=== PATIENT | male | born 1940 | race Caucasian/White ===

== ENCOUNTER 2018-07-04 13:46 | Outpatient (CLI) | payer MEDICARE, BC, SELFPAY ==
--- NOTE | 2018-07-04 13:56 | DI.US_ITS ---
SYMPTOMS/DIAGNOSIS: LEFT CAROTID BRUIT, R09.89, I65.23 CAROTID ULTRASOUND: There is a moderate amount of calcific plaque seen in the right common carotid bulb, proximal and mid internal carotid artery. There are mild velocity elevations, but no stenosis greater than 50%. There is a mild amount of calcific plaque in the left common carotid bulb and proximal internal and external carotid artery. No significant velocity elevations are seen. The vertebral arteries show antegrade flow. There is an ovoid mass posterolateral to the right proximal common carotid artery. It likely represents an abnormally enlarged lymph node and measures 2.8 x 1.4 x 1.7 cm. The right lobe of the thyroid is only partially imaged and there is a question of thyroid nodularity. IMPRESSION: 1. Calcific plaque, right greater than left. No stenosis greater than 50%. 2. A 2.8 cm hypoechoic mass adjacent to the proximal right common carotid artery may represent an abnormally enlarged cervical lymph node. CT of the neck is recommended for further evaluation.
== END 2018-07-04 14:06 ==
PROVIDERS: PCP Family Medicine; Visit Provider Family Medicine
DX: R09.89 Other specified symptoms and signs involving the circulatory and respiratory systems (principal); I65.23 Occlusion and stenosis of bilateral carotid arteries; R22.1 Localized swelling, mass and lump, neck
CPT/HCPCS: 93880

== ENCOUNTER 2018-07-10 02:07 | Outpatient (CLI) | payer MEDICARE, BC, SELFPAY ==
[2018-07-10 11:27] LABS: HCT 45.1 % (40.0-50.0); HGB 14.7 g/dL (13.5-17.5); Mean Corp. HGB Concentration 32.6 g/dL (32.0-36.0); Mean Corpuscular Hemoglobin 28.4 pg (27.0-33.0); Mean Corpuscular Volume 87.2 fL (80-95); Mean Platelet Volume 12.3 fL (8.0-11.0); Platelet Count 209 x1000/uL (130-400); RBC 5.17 m/cumm (4.50-6.00); White Blood Cell Count 6.25 k/cumm (4.4-10.8)
== END 2018-07-10 02:27 ==
PROVIDERS: PCP Family Medicine; Visit Provider Family Medicine
DX: R42 Dizziness and giddiness (principal); I99.9 Unspecified disorder of circulatory system
CPT/HCPCS: 80053; 80061; 83721; 85027; 83036; 84443

== ENCOUNTER 2018-07-13 02:23 | Outpatient (CLI) | payer MEDICARE, BC, SELFPAY ==
--- NOTE | 2018-07-13 12:29 | DI.CT_ITS ---
SYMPTOMS/DIAGNOSIS: F/U ABNORMAL ULTRASOUND, LARGE RIGHT NECK MASS, ENLARGED LYMPH NODE, R59.[address]: CT examination of the cervical region was performed with intravenous infusion of 100 cc of Omnipaque 350. The patient reportedly has an inferior right neck mass identified on recent carotid ultrasound. CT shows a 32 mm in diameter supraclavicular mass, which has appearance consistent with an enlarged lymph node. This corresponds to the abnormality identified on ultrasound. A couple of other small supraclavicular nodes are noted on the right, the largest measuring about 15 mm in diameter. There are nonspecific small superior mediastinal lymph nodes noted, the largest about 15 mm in diameter. Images obtained through the lung apices show a spiculated 32 mm in diameter right upper lobe apical lung mass, highly suspicious for carcinoma. No additional intrapulmonary findings on the visualized portions of the lungs. No additional neck mass seen. Tracheolaryngeal structures appear intact. Visualized portions of the brain are unremarkable. Orbital and temporal bone structures appear intact. No focal vascular abnormality is seen. CONCLUSION: Findings highly suggestive of right upper lobe neoplastic lesion with associated supraclavicular adenopathy.
[2018-07-13 13:53] LABS: CREATININE 0.91 mg/dL (0.70-1.30)
[2018-07-13 13:55] LABS: HGB 14.7 g/dL (13.5-17.5); Mean Corp. HGB Concentration 32.7 g/dL (32.0-36.0); Mean Corpuscular Hemoglobin 28.3 pg (27.0-33.0); Mean Corpuscular Volume 86.7 fL (80-95); Mean Platelet Volume 12.7 fL (8.0-11.0); Platelet Count 214 x1000/uL (130-400); RBC 5.19 m/cumm (4.50-6.00); RBC Distribution Width 13.8 % (11.8-14.1); White Blood Cell Count 7.44 k/cumm (4.4-10.8)
[2018-07-13] MEDS: Omnipaque 350 MG/ML 100 ML BTL IJ (15:06)
== END 2018-07-13 02:43 ==
PROVIDERS: PCP Family Medicine; Visit Provider Family Medicine
DX: R22.1 Localized swelling, mass and lump, neck (principal); R59.0 Localized enlarged lymph nodes; R42 Dizziness and giddiness; R91.8 Other nonspecific abnormal finding of lung field; D38.1 Neoplasm of uncertain behavior of trachea, bronchus and lung
CPT/HCPCS: 70491; 85027; 82565; J3490

== ENCOUNTER 2018-07-16 14:52 | Outpatient (CLI) | payer MEDICARE, BC, SELFPAY ==
[2018-07-16] MEDS: Omnipaque 350 MG/ML 50 ML BTL PO (10:05)
[2018-07-16] MEDS: Breeza Beverage 473 ML BTL PO ×2 (10:07→10:08)
[2018-07-16 11:20] LABS: ALT 31 U/L (12-78); AST 22 U/L (15-37); Albumin 3.6 g/dL (3.4-5.0); Alkaline Phosphatase 97 U/L (46-116); Anion Gap 9.2 mmol/L (3-11); BUN 25 mg/dL (7-18); Bilirubin, Total 0.6 mg/dL (0.2-1.0); CO2 29.8 mmol/L (21.0-32.0); CREATININE 1.17 mg/dL (0.70-1.30); Calcium 9.2 mg/dL (8.5-10.1); Chloride 99 mmol/L (98-107); Cholesterol 205 mg/dL (50-200); Glucose 383 mg/dL (70-100); HDL Cholesterol 45 mg/dL (40-60); LDL CHOLESTEROL 137 mg/dL (<100); Potassium 4.5 mmol/L (3.5-5.1); Sodium 138 mmol/L (136-145); Total Protein 6.8 g/dL (6.4-8.2); Triglyceride 222 mg/dL (30-150)
[2018-07-16 11:31] LABS: LDH 197 U/L (85-227)
[2018-07-16] MEDS: Omnipaque 350 MG/ML 100 ML BTL IJ (11:49)
--- NOTE | 2018-07-16 12:00 | DI.CT_ITS ---
SYMPTOMS/DIAGNOSIS: NEW LUNG MASS SEEN ON CT, R91.8 CT SCAN OF THE CHEST, ABDOMEN AND PELVIS: Comparison CT of the neck is 07/13/18. CT SCAN OF THE ABDOMEN AND PELVIS: There are no priors for comparison. The liver is normal in size. No evidence of hepatic mass is seen. The portal, superior mesenteric and splenic veins are patent. There are stones seen within the gallbladder. No biliary ductal dilatation is present. The pancreas, spleen and adrenal glands are unremarkable. The right kidney shows normal enhancement. No evidence of a solid renal mass or obstruction. There is a heterogeneously enhancing mass in the left kidney measuring 6.4 cm AP x 5.5 cm transverse x 6.1 cm craniocaudally. The mass has an area of decreased attenuation centrally suspicious for necrosis. Primary diagnostic consideration is for a neoplasm such as a renal cell carcinoma. The mass infiltrates into the renal hilum. The visualized portions of renal artery and vein appear patent. No obstructive uropathy is identified. The urinary bladder is intact. The reproductive organs are grossly unremarkable. There is atherosclerosis of the abdominal aorta but no aneurysmal dilatation is present. No significant abdominal or pelvic adenopathy, ascites or pneumoperitoneum is present. The bowel shows no evidence of obstruction or inflammation. There is a normal appendix present. Degenerative changes are seen in the spine. No aggressive osseous lesions are present. IMPRESSION: 1. 6.4 cm heterogeneous left renal mass suspicious for primary renal neoplasm. Renal cell carcinoma should be considered. 2. No evidence of abdominal or pelvic metastatic disease. 3. Incidental findings of cholelithiasis. CT SCAN OF THE CHEST: There is atherosclerosis of the thoracic aorta but no aneurysmal dilatation is seen. The heart size is within normal limits. No significant pericardial effusion is present. Coronary artery calcifications are present. There are again seen enlarged lymph nodes in the supraclavicular region. These are unchanged compared to the CT scan of the neck from 07/13/18. There is an enlarged lymph node anterior to the trachea measuring .8 cm in short axis diameter. No axillary adenopathy is seen. There is a 1.4 cm right supraclavicular lymph node present. No pleural effusion or pneumothorax is identified. There are a few noncalcified pulmonary nodules present. The largest is a spiculated mass seen in the right upper lobe measuring 3.2 cm transverse x 2.9 cm AP x 3.6 cm craniocaudally. There is a 1 cm noncalcified pulmonary nodule in the right middle lobe. Smaller pulmonary nodules are also seen in the left lung. The tracheobronchial tree is unremarkable. Central lobular emphysematous changes are seen in the lungs. No focal consolidating infiltrates are seen. Degenerative changes are seen in the spine. No aggressive osseous lesions are identified. IMPRESSION: 1. Multiple pulmonary masses. The largest is seen in the right upper lobe measuring 3.6 cm. The findings are suspicious for metastatic disease vs primary neoplasm. 2. Supraclavicular adenopathy.
[2018-07-16 12:22] LABS: ESR 8 MM/HR (1-20)
[2018-07-17 19:00] LABS: Bilirubin Negative (Negative); Blood Negative (Negative); Clarity Clear; Glucose 500 mg/dL (Negative); Ketones Negative (Negative); Leukocyte Esterase Negative (Negative); Nitrite Negative (Negative); Urobilinogen 0.2 EU/dL (Up TO 0.2)
[2018-07-17 19:17] LABS: Bacteria Moderate HPF (Negative); Casts Negative LPF (Negative); Crystals Negative HPF (Negative); Epithelial Cells Rare HPF (Negative); Mucus Trace (Negative); Other Cells Negative (Negative); RBC Negative (0-2); WBC 0-2 HPF (0-5)
[2018-07-17 19:18] LABS: C & S Indicated? Yes
== END 2018-07-16 15:12 ==
PROVIDERS: PCP Family Medicine; Visit Provider Family Medicine
DX: R91.8 Other nonspecific abnormal finding of lung field (principal); N28.89 Other specified disorders of kidney and ureter; K80.20 Calculus of gallbladder without cholecystitis without obstruction; R59.0 Localized enlarged lymph nodes
CPT/HCPCS: 36415; 74177; 80053; 80061; 83721; 85652; 71260; 83615; J3490; Q9967

== ENCOUNTER 2018-07-17 20:19 | Outpatient (REF) | payer MEDICARE, BC, SELFPAY ==
[2018-07-17 18:57] LABS: Hemoglobin A1C 9.9 % (4.5-6.2)
== END 2018-07-17 20:39 ==
LOC: LBN 20:19
PROVIDERS: PCP Family Medicine; Visit Provider Family Medicine
DX: R73.09 Other abnormal glucose (principal)
CPT/HCPCS: 81003; 81015; 83036; 87086

== ENCOUNTER 2018-07-18 00:08 | Outpatient (CLI) | payer MEDICARE, BC, SELFPAY ==
--- NOTE | 2018-07-18 08:30 | ETT_ITS ---
*[facility]* *[facility]* [address] [place] [address] Stress Electrocardiography Selwyn protocol Date of study: 07/18/2018 *PATIENT PRESENTATION* Height: 180.3cm (71in) Blood Pressure: Weight: 86.4kg (190lb) BSA: 2.09m^2 Referring physician: Cari Sharp Ordering physician: Cari Sharp Impressions: Negative stress test after maximal exercise. Summary: 1. Stress ECG conclusions: The stress ECG is negative. Isolated ventricular ectopy. Arevalo treadmill score: 6. This score predicts a low risk of cardiac events. 2. Stress: The target heart rate was achieved. The heart rate response to stress is normal. There is resting hypertension with an appropriate response to stress. The patient experienced no chest pain during stress. Exercise capacity is mildly diminished for age. 3. Treadmill exercise testing was performed using the Selwyn protocol. The patient exercised for 5 min 47 sec, to protocol stage 2, to a maximal work rate of 7.1mets. Exercise was terminated due to fatigue. Indication: R07.89, Appropriate Use Criteria: M (May be appropriate). History: Patient's presenting symptoms: asymptomatic. REASON FOR VISIT: PRESURGICAL SCREENING. PATIENT WITH RECENT DIAGNOSIS OF KIDNEY AND LUNG CANCER. PAST MEDICAL HISTORY: BASAL CELL CARCINOMA, DIVERTICULOSIS OF COLON, IMPAIRED FASTING GLUCOSE, UNILATERAL INGUINAL HERNIA, VARICOSE VEINS OF LOWER EXTREMITY, AORTIC STENOSIS, VASCULAR DISEASE, HYPERTENSION. FAMILY HISTORY: NONE. SMOKING STATUS: 40 PACK YEAR HISTORY. QUIT IN 1993. EXERCISE ROUTINE: NONE. Risk factors: Hypertension. Diabetes mellitus. Dyslipidemia. Cholesterol: 205mg/dl. HDL: 45mg/dl. LDL: 137mg/dl. Triglycerides: 222mg/dl. ALLERGIES: PEANUT, CEPHALEXIN, PENICILLINS. MEDICATIONS: LISINOPRIL 10MG - HYDROCHLOROTHIAZIDE 12.5MG, DAILY. Protocol: Selwyn protocol. Baseline ECG: SINUS BRADYCARDIA, HEART RATE 56 BPM. Normal ECG. Stress protocol: + +---+ + !Stage !HR !BP (mmHg) ! + +---+ + !Baseline supine !56 !160/62 (95) ! + +---+ + !Baseline standing !60 !170/72 (105)! + +---+ + !Stage I; 1.7mph, 10degrees; 3 min !98 !220/74 (123)! + +---+ + !Stage II; 2.5mph, 12degrees; 3 min!121!232/80 (131)! + +---+ + !Recovery; 1 min !89 !224/78 (127)! + +---+ + !Recovery; 3 min !72 !230/72 (125)! + +---+ + !Recovery; 6 min !74 !220/70 (120)! + +---+ + !Recovery; 9 min !71 !164/68 (100)! + +---+ + * Stress results: Maximal heart rate during stress was 122bpm (87% of maximal predicted heart rate). The maximal predicted heart rate was 141bpm. The target heart rate was achieved. The heart rate response to stress is normal. There is resting hypertension with an appropriate response to stress. The rate-pressure product for the peak heart rate and blood pressure was 74355eg Hg/min. The patient experienced no chest pain during stress. Exercise capacity is mildly diminished for age. Stress ECG: TREADMILL EXERCISE STRESS TEST ENDED IN 5MIN 47SEC DUE TO MUSCULAR FATIGUE/PAIN. NORMAL HEART RATE RESPONSE TO EXERCISE. HYPERTENSIVE RESPONSE TO EXERCISE. OF NOTE, PATIENT HELD BLOOD PRESSURE MEDICATION THIS MORNING. MAX HEART RATE 122 BPM, 86% OF TARGET. APPROXIMATE METS ACHIEVED 7.05. NO ANGINA REPORTED. OCCASIONAL PVC NOTED. MILD UPWARD SLOPING ST SEGMENT DEPRESSION NOTED IN LEADS V4, V5, AND V6 DURING IMMEDIATE RECOVERY, RESOLVING WITHIN ONE MINUTE. MILDLY DIMINISHED FUNCTIONAL CAPCITY FOR EXERCISE. The stress ECG is negative. Isolated ventricular ectopy. Arevalo treadmill score: 6. This score predicts a low risk of cardiac events. Study data: Andrzej Reno MD supervised and was readily available during the procedure. This study was interpreted by [facility]. Study status: Routine. Consent: The risks, benefits, and alternatives to the procedure were explained to the patient and informed consent was obtained. Procedure: Initial setup. A baseline ECG was recorded. Surface ECG leads and manual cuff blood pressure measurements were monitored. Heart sounds: Murmur. Lung sounds: Normal. Treadmill exercise testing was performed using the Selwyn protocol. The patient exercised for 5 min 47 sec, to protocol stage 2, to a maximal work rate of 7.1mets. Exercise was terminated due to fatigue. Study completion: The patient tolerated the procedure well and was discharged from the lab. Discharge: The patient left the laboratory in stable condition. Birthdate: Patient birthdate: 1940. Sex: Gender: male. Study date: Study date: 07/18/2018. Study time: 00:01 AM. Signature Documentation: The Stress ECG portion of this study was interpreted by Andrzej Reno MD. Electronically signed by Andrzej Reno 07/18/2018 11:02
--- NOTE | 2018-07-18 10:30 | MERGE_ITS ---
*[facility]* *[facility]* [address] [place] [address] Date of study: 07/18/2018 Transthoracic Echocardiography M-mode, complete 2D, complete spectral Doppler, and color Doppler *STUDY CONCLUSIONS* Summary: 1. Left ventricle: The cavity size was normal. Wall thickness was normal. Systolic function was normal. The estimated ejection fraction was 60-65%. Wall motion was normal; there were no regional wall motion abnormalities. Findings consistent with diastolic dysfunction. 2. Aortic valve: Valve mobility was restricted. There was mild stenosis. There was trivial regurgitation. Peak velocity (S): 2.4m/sec. Mean gradient (S): 14.2mm Hg. Valve area (VTI): 1.7cm^2. 3. Left atrium: The atrium was moderately dilated. 4. Right ventricle: The cavity size was normal. Wall thickness was normal. Systolic function was normal. 5. Pulmonary arteries: Pulmonary systolic pressure was increased, in the range of 35mm Hg to 40mm Hg. *PATIENT PRESENTATION* Height: 180.3cm ((71in) ) S/D Pressure: 148 / 56 Weight: 86.2kg ((189.6lb) ) BSA: 2.09m^2 Test start time: 10:35 AM. Test stop time: 11:35 AM. 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 This study was interpreted by [facility]. Pertinent images and digital data are archived for permanent storage and are available for subsequent review. No prior study was available for comparison. Study status: Routine. Transthoracic echocardiography. M-mode, complete 2D, complete spectral Doppler, and color Doppler. A Transthoracic Echocardiogram was performed. Scanning was performed from the parasternal, apical, subcostal, and suprasternal notch acoustic windows. Images were obtained using an [id number] cardiac ultrasound machine. Image quality was adequate. Study completion: The patient tolerated the procedure well. There were no complications. History: PMH: Aortic murmur. vascular disease i9.9, i35.0 non rheumatic aortic stenosis. *CARDIAC ANATOMY* Left ventricle: The cavity size was normal. Wall thickness was normal. Systolic function was normal. The estimated ejection fraction was 60-65%. Wall motion was normal; there were no regional wall motion abnormalities. Findings consistent with diastolic dysfunction. Aortic valve: Trileaflet; mildly thickened, mildly calcified leaflets. Valve mobility was restricted. Doppler: There was mild stenosis. There was trivial regurgitation. VTI ratio of LVOT to aortic valve: 0.46. Valve area (VTI): 1.7cm^2. Indexed valve area (VTI): 0.8cm^2/m^2. Peak velocity ratio of LVOT to aortic valve: 0.44. Valve area (Vmax): 1.6cm^2. Indexed valve area (Vmax): 0.8cm^2/m^2. Mean velocity ratio of LVOT to aortic valve: 0.46. Valve area (Vmean): 1.7cm^2. Indexed valve area (Vmean): 0.8cm^2/m^2. Mean gradient (S): 14.2mm Hg. Peak gradient (S): 23.6mm Hg. Aorta: Aortic root: The aortic root was normal in size. Ascending aorta: The ascending aorta was normal in size. Mitral valve: Mildly calcified annulus. Mildly thickened leaflets. Mobility was not restricted. Doppler: Transvalvular velocity was within the normal range. There was no evidence for stenosis. There was trivial regurgitation. Valve area by pressure half-time: 3.1cm^2. Indexed valve area by pressure half-time: 1.5cm^2/m^2. Peak gradient (D): 2.5mm Hg. Left atrium: The atrium was moderately dilated. Right ventricle: The cavity size was normal. Wall thickness was normal. Systolic function was normal. Pulmonic valve: Doppler: Transvalvular velocity was within the normal range. There was no evidence for stenosis. There was no significant regurgitation. Tricuspid valve: Structurally normal valve. Doppler: Transvalvular velocity was within the normal range. There was no evidence for stenosis. There was trivial regurgitation. Pulmonary artery: Pulmonary systolic pressure was increased, in the range of 35mm Hg to 40mm Hg. Right atrium: The atrium was normal in size. Pericardium: There was no pericardial effusion. Systemic veins: Inferior vena cava: Well visualized. The vessel was patent and normal in size. The respirophasic diameter changes were in the normal range (greater than or equal to 50%). Baseline ECG: Bradycardia. Measurements Left ventricle Value Reference LV ID, ED, PLAX 5.7 cm 3.5 - 6.0 LV ID, ES, PLAX 3.2 cm 2.1 - 4.0 LV PW thickness, ED, PLAX 1.2 cm LV end-diastolic volume, 1-p A2C 126 ml LV ejection fraction, 1-p A2C 72 % LV end-diastolic volume, 1-p A4C 152 ml LV ejection fraction, 1-p A4C 66 % LV e', lateral 0.08 m/sec LV E/e', lateral 10 LV e', medial 0.085 m/sec LV E/e', medial 9 LV e', average 0.083 m/sec LV E/e', average 10 Ventricular septum Value Reference IVS thickness, ED, PLAX 1.1 cm LVOT Value Reference LVOT ID, A-P 2.2 cm LVOT area 3.7 cm^2 LVOT peak velocity, S 1.06 m/sec LVOT mean velocity, S 0.83 m/sec LVOT VTI, S 27.0 cm LVOT peak gradient, S 4.5 mm Hg LVOT mean gradient, S 2.9 mm Hg Stroke volume (SV), LVOT DP 100 ml Stroke index (SV/bsa), LVOT DP 48 ml/m^2 Aortic valve Value Reference Aortic valve peak velocity, S 2.4 m/sec Aortic valve mean velocity, S 1.81 m/sec Aortic valve VTI, S 59.0 cm Aortic mean gradient, S 14.2 mm Hg Aortic peak gradient, S 23.6 mm Hg VTI ratio, LVOT/AV 0.46 Aortic valve area, VTI 1.7 cm^2 Velocity ratio, peak, LVOT/AV 0.44 Aortic valve area, peak velocity 1.6 cm^2 Velocity ratio, mean, LVOT/AV 0.46 Aortic valve area, mean velocity 1.7 cm^2 Aortic valve area/bsa, mean velocity 0.8 cm^2/m^2 Aorta Value Reference Aortic root ID, ED 2.9 cm Ascending aorta ID, A-P, S 3.3 cm Left atrium Value Reference LA ID, A-P, ES 4.2 cm LA ID/bsa, A-P 2.0 cm/m^2 <=2.2 LA area, ES, A4C 22.6 cm^2 8.8 - 23.4 LA area, ES, A2C 29 cm^2 LA volume/bsa, ES, 1-p A4C 36 ml/m^2 LA volume, ES, 2-p 90 ml LA volume/bsa, ES, 2-p 43 ml/m^2 LA/aortic root ratio 1.45 Mitral valve Value Reference Mitral E-wave peak velocity 0.79 m/sec Mitral A-wave peak velocity 0.91 m/sec Mitral deceleration time (H) 245 ms 150 - 230 Mitral pressure half-time 71 ms Mitral peak gradient, D 2.5 mm Hg Mitral E/A ratio, peak 0.87 Mitral valve area, PHT, DP 3.1 cm^2 Pulmonary veins Value Reference Pulmonary vein peak velocity, S 0.79 m/sec Pulmonary vein peak velocity, D 0.55 m/sec Pulmonary vein velocity ratio, peak, 1.42 S/D Pulmonary vein A-wave reversal peak 0.36 m/sec velocity Tricuspid valve Value Reference Tricuspid regurg peak velocity 3.1 m/sec Tricuspid peak RV-RA gradient 38.7 mm Hg Right atrium Value Reference RA area, ES, A4C (H) 23.4 cm^2 8.3 - 19.5 Legend: (L) and (H) esa values outside specified reference range. I have personally reviewed the images and have reviewed and edited the reported findings. Electronically signed by Andrzej Reno 07/18/2018 15:22
== END 2018-07-18 00:28 ==
PROVIDERS: PCP Family Medicine; Visit Provider Family Medicine
DX: R07.89 Other chest pain (principal); I35.2 Nonrheumatic aortic (valve) stenosis with insufficiency; I51.7 Cardiomegaly; R01.1 Cardiac murmur, unspecified; I10 Essential (primary) hypertension; D38.1 Neoplasm of uncertain behavior of trachea, bronchus and lung
CPT/HCPCS: 93016; 93018; 93306; 93017

== ENCOUNTER 2018-08-21 00:37 | Outpatient (CLI) | payer MEDICARE, BC, SELFPAY ==
[2018-08-21] MEDS: Gadoterate meglumine 20 ML VIAL 18 ML IVP (11:36)
[2018-08-21] MEDS: Normal Saline Flush 10 ML SYR IVP (11:38)
--- NOTE | 2018-08-21 12:00 | DI.MRI_ITS ---
SYMPTOMS/DIAGNOSIS: STAGING OF METASTATIC PRIMARY LUNG CA, C34.91, C78.01, C78.02 MRI OF THE BRAIN: There are no prior comparison exams. T 2 sagittal, T 1, T 2, FLAIR diffusion and gradient echo axial and post Gadolinium T 1 axial and coronal sequences were performed. There is atrophy consistent with the patient's age. There are mild scattered foci of increased signal in the white matter consistent with sequela of microvascular disease. Small microvascular lesions are also seen in the timothy. There are no areas of enhancement or findings to suggest metastatic disease. There is a tiny focus of restricted diffusion seen in the high right anterior parietal region which could represent a small subacute infarct. IMPRESSION: Question of a tiny peripheral subacute high right parietal infarct. There are no findings to suggest metastatic disease.
== END 2018-08-21 00:57 ==
PROVIDERS: PCP Family Medicine; Visit Provider Internal Medicine
DX: C34.91 Malignant neoplasm of unspecified part of right bronchus or lung (principal); C78.01 Secondary malignant neoplasm of right lung; C78.02 Secondary malignant neoplasm of left lung; G31.1 Senile degeneration of brain, not elsewhere classified
CPT/HCPCS: 70553

== ENCOUNTER 2018-10-22 08:57 | Outpatient (CLI) | payer MEDICARE, BC, SELFPAY ==
[2018-10-22 10:10] LABS: Hemoglobin A1C 8.3 % (4.5-6.2)
[2018-10-22 10:32] LABS: ALT 36 U/L (12-78); AST 23 U/L (15-37); Albumin 3.4 g/dL (3.4-5.0); Alkaline Phosphatase 101 U/L (46-116); Anion Gap 9.3 mmol/L (3-11); BUN 22 mg/dL (7-18); Bilirubin, Total 0.4 mg/dL (0.2-1.0); CO2 28.7 mmol/L (21.0-32.0); CREATININE 1.03 mg/dL (0.70-1.30); Calcium 8.9 mg/dL (8.5-10.1); Chloride 105 mmol/L (98-107); Glucose 180 mg/dL (70-100); Potassium 4.8 mmol/L (3.5-5.1); Sodium 143 mmol/L (136-145); Total Protein 6.4 g/dL (6.4-8.2)
== END 2018-10-22 09:17 ==
PROVIDERS: PCP Family Medicine; Visit Provider Family Medicine
DX: C34.90 Malignant neoplasm of unspecified part of unspecified bronchus or lung (principal); C64.9 Malignant neoplasm of unspecified kidney, except renal pelvis; E11.9 Type 2 diabetes mellitus without complications
CPT/HCPCS: 36415; 80053; 83036

== ENCOUNTER 2018-11-29 09:05 | Outpatient (CLI) | payer MEDICARE, BC, SELFPAY ==
[2018-11-29 09:30] LABS: Abs Immature Grans 0.01 k/cumm (0.0-0.09); Absolute Basophil Count 0.04 k/cumm (0.0-0.2); Absolute Lymphocyte Count 0.87 k/cumm (1.2-3.4); Absolute Monocyte Count 0.49 k/cumm (0.11-0.7); Absolute Neutrophil Count 4.64 k/cumm (1.2-6.7); Basophils % 0.7; Eosinophils % 1.6; HCT 40.5 % (40.0-50.0); HGB 13.3 g/dL (13.5-17.5); Immature Grans % 0.2; Lymphocytes % 14.1; Mean Corp. HGB Concentration 32.8 g/dL (32.0-36.0); Mean Corpuscular Hemoglobin 29.4 pg (27.0-33.0); Mean Corpuscular Volume 89.4 fL (80-95); Neutrophils % 75.4; Platelet Count 217 x1000/uL (130-400); RBC 4.53 m/cumm (4.50-6.00); RBC Distribution Width 13.6 % (11.8-14.1); White Blood Cell Count 6.15 k/cumm (4.4-10.8)
[2018-11-29 09:56] LABS: ALT 21 U/L (12-78); AST 14 U/L (15-37); Albumin 3.3 g/dL (3.4-5.0); Alkaline Phosphatase 77 U/L (46-116); Anion Gap 9.5 mmol/L (3-11); BUN 22 mg/dL (7-18); Bilirubin, Total 0.6 mg/dL (0.2-1.0); CO2 28.5 mmol/L (21.0-32.0); CREATININE 1.04 mg/dL (0.70-1.30); Calcium 8.8 mg/dL (8.5-10.1); Chloride 104 mmol/L (98-107); FREE T4 1.18 ng/dL (0.76-1.46); Glucose 203 mg/dL (70-100); Potassium 4.2 mmol/L (3.5-5.1); Sodium 142 mmol/L (136-145); TSH 3.56 uIU/mL (0.36-3.74); Total Protein 6.8 g/dL (6.4-8.2)
== END 2018-11-29 09:25 ==
PROVIDERS: PCP Family Medicine; Visit Provider Internal Medicine
DX: C34.2 Malignant neoplasm of middle lobe, bronchus or lung (principal); Z79.899 Other long term (current) drug therapy
CPT/HCPCS: 36415; 80053; 84439; 84443; 85025

== ENCOUNTER 2018-12-18 07:55 | Outpatient (CLI) | payer MEDICARE, BC, SELFPAY ==
[2018-12-18 08:21] LABS: Bilirubin Negative (Negative); Blood Trace-intact (Negative); Clarity Clear (Clear); Glucose Negative (Negative); Ketones Negative (Negative); Leukocyte Esterase Negative (Negative); Nitrite Negative (Negative); Specific Gravity 1.015 (1.005-1.025); Urobilinogen 0.2 EU/dL (Up TO 0.2)
[2018-12-18 08:23] LABS: Abs Immature Grans 0.01 k/cumm (0.0-0.09); Absolute Basophil Count 0.05 k/cumm (0.0-0.2); Absolute Eosinophil Count 0.06 k/cumm (0.0-0.7); Absolute Lymphocyte Count 0.78 k/cumm (1.2-3.4); Absolute Monocyte Count 0.61 k/cumm (0.11-0.7); Absolute Neutrophil Count 4.18 k/cumm (1.2-6.7); Basophils % 0.9; Eosinophils % 1.1; HCT 43.2 % (40.0-50.0); HGB 14.6 g/dL (13.5-17.5); Immature Grans % 0.2; Lymphocytes % 13.7; Mean Corp. HGB Concentration 33.8 g/dL (32.0-36.0); Mean Corpuscular Hemoglobin 29.6 pg (27.0-33.0); Mean Corpuscular Volume 87.6 fL (80-95); Mean Platelet Volume 11.2 fL (8.0-11.0); Monocytes % 10.7; Neutrophils % 73.4; Platelet Count 209 x1000/uL (130-400); RBC 4.93 m/cumm (4.50-6.00); RBC Distribution Width 13.8 % (11.8-14.1); White Blood Cell Count 5.69 k/cumm (4.4-10.8)
[2018-12-18 08:41] LABS: ALT 26 U/L (16-63); AST 20 U/L (15-37); Albumin 3.4 g/dL (3.4-5.0); Alkaline Phosphatase 92 U/L (46-116); Anion Gap 5.1 mmol/L (3-11); BUN 18 mg/dL (7-18); Bilirubin, Total 0.7 mg/dL (0.2-1.0); CO2 29.9 mmol/L (21.0-32.0); Chloride 104 mmol/L (98-107); Glucose 178 mg/dL (70-100); Potassium 4.9 mmol/L (3.5-5.1); Sodium 139 mmol/L (136-145); TSH 4.47 uIU/mL (0.36-3.74)
[2018-12-18 08:44] LABS: Bacteria Few HPF (Negative); C & S Indicated? Yes; Casts Negative LPF (Negative); Crystals Negative HPF (Negative); Epithelial Cells Negative HPF (Negative); Mucus Negative (Negative)
[2018-12-18 08:59] LABS: FREE T4 1.14 ng/dL (0.76-1.46)
== END 2018-12-18 08:15 ==
PROVIDERS: PCP Family Medicine; Visit Provider Internal Medicine
DX: C64.2 Malignant neoplasm of left kidney, except renal pelvis (principal); Z79.899 Other long term (current) drug therapy; C78.01 Secondary malignant neoplasm of right lung
CPT/HCPCS: 36415; 80053; 81003; 81015; 84439; 84443; 85025; 87086

== ENCOUNTER 2019-01-08 07:32 | Outpatient (CLI) | payer MEDICARE, BC, SELFPAY ==
[2019-01-08 08:01] LABS: Bilirubin Negative (Negative); Blood Negative (Negative); Clarity Clear (Clear); Glucose 100 mg/dL (Negative); Ketones Negative (Negative); Leukocyte Esterase Negative (Negative); Nitrite Negative (Negative); Urobilinogen 0.2 EU/dL (Up TO 0.2)
[2019-01-08 08:02] LABS: Abs Immature Grans 0.01 k/cumm (0.0-0.09); Absolute Basophil Count 0.05 k/cumm (0.0-0.2); Absolute Eosinophil Count 0.09 k/cumm (0.0-0.7); Absolute Lymphocyte Count 0.95 k/cumm (1.2-3.4); Absolute Monocyte Count 0.52 k/cumm (0.11-0.7); Absolute Neutrophil Count 4.41 k/cumm (1.2-6.7); Basophils % 0.8; Eosinophils % 1.5; HCT 44.7 % (40.0-50.0); Immature Grans % 0.2; Lymphocytes % 15.8; Mean Corp. HGB Concentration 33.6 g/dL (32.0-36.0); Mean Corpuscular Hemoglobin 29.5 pg (27.0-33.0); Mean Corpuscular Volume 87.8 fL (80-95); Monocytes % 8.6; Neutrophils % 73.1; Platelet Count 230 x1000/uL (130-400); RBC 5.09 m/cumm (4.50-6.00); RBC Distribution Width 13.9 % (11.8-14.1); White Blood Cell Count 6.03 k/cumm (4.4-10.8)
[2019-01-08 08:28] LABS: ALT 29 U/L (16-63); AST 21 U/L (15-37); Albumin 3.4 g/dL (3.4-5.0); Alkaline Phosphatase 96 U/L (46-116); Anion Gap 5.4 mmol/L (3-11); BUN 22 mg/dL (7-18); Bilirubin, Total 0.6 mg/dL (0.2-1.0); CO2 29.6 mmol/L (21.0-32.0); Calcium 8.8 mg/dL (8.5-10.1); Chloride 103 mmol/L (98-107); Glucose 249 mg/dL (70-100); Potassium 4.2 mmol/L (3.5-5.1); Sodium 138 mmol/L (136-145); TSH 3.69 uIU/mL (0.36-3.74); Total Protein 6.9 g/dL (6.4-8.2)
[2019-01-08 08:32] LABS: Bacteria Rare HPF (Negative); C & S Indicated? No; Casts Negative LPF (Negative); Crystals Negative HPF (Negative); Epithelial Cells Rare HPF (Negative); Mucus Trace (Negative); RBC Negative (0-2)
[2019-01-08 08:57] LABS: Hemoglobin A1C 7.8 % (4.5-6.2)
== END 2019-01-08 07:52 ==
PROVIDERS: PCP Family Medicine; Visit Provider Internal Medicine
DX: E11.9 Type 2 diabetes mellitus without complications (principal); C78.01 Secondary malignant neoplasm of right lung; C64.2 Malignant neoplasm of left kidney, except renal pelvis; Z79.899 Other long term (current) drug therapy
CPT/HCPCS: 36415; 80053; 81003; 81015; 83036; 84439; 84443; 85025; 87086

== ENCOUNTER 2019-01-29 08:01 | Outpatient (CLI) | payer MEDICARE, BC, SELFPAY ==
[2019-01-29 08:51] LABS: Abs Immature Grans 0.02 k/cumm (0.0-0.09); Absolute Basophil Count 0.03 k/cumm (0.0-0.2); Absolute Eosinophil Count 0.09 k/cumm (0.0-0.7); Absolute Lymphocyte Count 0.78 k/cumm (1.2-3.4); Absolute Monocyte Count 0.73 k/cumm (0.11-0.7); Absolute Neutrophil Count 5.04 k/cumm (1.2-6.7); Basophils % 0.4; Eosinophils % 1.3; HCT 43.4 % (40.0-50.0); HGB 14.6 g/dL (13.5-17.5); Immature Grans % 0.3; Lymphocytes % 11.7; Mean Corp. HGB Concentration 33.6 g/dL (32.0-36.0); Mean Corpuscular Hemoglobin 29.5 pg (27.0-33.0); Mean Corpuscular Volume 87.7 fL (80-95); Mean Platelet Volume 10.7 fL (8.0-11.0); Monocytes % 10.9; Neutrophils % 75.4; Platelet Count 254 x1000/uL (130-400); RBC 4.95 m/cumm (4.50-6.00); RBC Distribution Width 13.8 % (11.8-14.1); White Blood Cell Count 6.69 k/cumm (4.4-10.8)
[2019-01-29 09:15] LABS: ALT 25 U/L (16-63); AST 22 U/L (15-37); Albumin 3.2 g/dL (3.4-5.0); Alkaline Phosphatase 114 U/L (46-116); Anion Gap 6.5 mmol/L (3-11); BUN 18 mg/dL (7-18); Bilirubin, Total 0.7 mg/dL (0.2-1.0); CO2 29.5 mmol/L (21.0-32.0); Calcium 8.8 mg/dL (8.5-10.1); Chloride 103 mmol/L (98-107); FREE T4 1.21 ng/dL (0.76-1.46); Glucose 205 mg/dL (70-100); Potassium 4.7 mmol/L (3.5-5.1); Sodium 139 mmol/L (136-145); TSH 4.22 uIU/mL (0.36-3.74)
[2019-01-29 09:39] LABS: Bilirubin Negative (Negative); Blood Negative (Negative); Clarity Clear (Clear); Glucose 100 mg/dL (Negative); Ketones Negative (Negative); Leukocyte Esterase Negative (Negative); Nitrite Negative (Negative); Specific Gravity 1.015 (1.005-1.025); Urobilinogen 0.2 EU/dL (Up TO 0.2)
[2019-01-29 09:51] LABS: Bacteria Rare HPF (Negative); C & S Indicated? No; Casts Negative LPF (Negative); Crystals Negative HPF (Negative); Epithelial Cells Rare HPF (Negative); Mucus Trace (Negative); RBC 0-2 (0-2)
== END 2019-01-29 08:21 ==
PROVIDERS: Registered Nurse Oncology; PCP Family Medicine; Visit Provider Internal Medicine
DX: C78.01 Secondary malignant neoplasm of right lung (principal); C64.2 Malignant neoplasm of left kidney, except renal pelvis; Z79.899 Other long term (current) drug therapy
CPT/HCPCS: 36415; 80053; 81003; 81015; 84439; 84443; 85025

== ENCOUNTER 2019-02-13 01:58 | Outpatient (CLI) | payer MEDICARE, BC, SELFPAY ==
[2019-02-13 09:55] LABS: Abs Immature Grans 0.04 k/cumm (0.0-0.09); Absolute Basophil Count 0.06 k/cumm (0.0-0.2); Absolute Eosinophil Count 0.07 k/cumm (0.0-0.7); Absolute Lymphocyte Count 0.99 k/cumm (1.2-3.4); Absolute Neutrophil Count 4.88 k/cumm (1.2-6.7); Basophils % 0.9; HCT 43.2 % (40.0-50.0); HGB 14.3 g/dL (13.5-17.5); Immature Grans % 0.6; Lymphocytes % 14.7; Mean Corp. HGB Concentration 33.1 g/dL (32.0-36.0); Mean Corpuscular Volume 87.6 fL (80-95); Mean Platelet Volume 10.7 fL (8.0-11.0); Monocytes % 10.4; Neutrophils % 72.4; Platelet Count 298 x1000/uL (130-400); RBC 4.93 m/cumm (4.50-6.00); RBC Distribution Width 13.6 % (11.8-14.1); White Blood Cell Count 6.74 k/cumm (4.4-10.8)
[2019-02-13] MEDS: Omnipaque 350 MG/ML 100 ML BTL IJ (09:55)
[2019-02-13] MEDS: Breeza Beverage 473 ML BTL PO ×2 (09:59→10:00)
[2019-02-13] MEDS: Omnipaque 350 MG/ML 50 ML BTL PO (10:00)
[2019-02-13 10:20] LABS: ALT 25 U/L (16-63); AST 22 U/L (15-37); Albumin 3.3 g/dL (3.4-5.0); Alkaline Phosphatase 105 U/L (46-116); Anion Gap 6.5 mmol/L (3-11); BUN 16 mg/dL (7-18); Bilirubin, Total 0.6 mg/dL (0.2-1.0); CO2 29.5 mmol/L (21.0-32.0); Chloride 102 mmol/L (98-107); FREE T4 1.21 ng/dL (0.76-1.46); Glucose 185 mg/dL (70-100); Potassium 4.6 mmol/L (3.5-5.1); Sodium 138 mmol/L (136-145); TSH 4.41 uIU/mL (0.36-3.74); Total Protein 7.2 g/dL (6.4-8.2)
[2019-02-13] MEDS: Normal Saline Flush 10 ML SYR IVP (11:38)
--- NOTE | 2019-02-13 11:40 | DI.CT_ITS ---
EXAM: CT CHEST/ABD/PEL W CLINICAL HISTORY: METASTATIC RENAL CELL CARCINOMA C64.2 TECHNIQUE: CT examination of the chest, abdomen, and pelvis was performed with bolus infusion of 100 cc of Omnipaque 350. COMPARISON: CT CHEST/ABD/PEL W from 07/16/2018 FINDINGS: The patient reportedly has a history of metastatic renal cell carcinoma. Prior CT examination of 0 07/16/2018 showed multiple intrapulmonary nodules, the largest a 36 millimeter in diameter right apica l mass. On today's examination, the right apical mass measures 26 millimeters in greatest diameter, decreased from the prior study. Perilesional increased radiodensity noted in a fibrotic pattern, que stion prior radiotherapy. A right middle lobe pulmonary nodule appears to have been resected. Addit ional tiny nodules at the right lung base, pleural based grossly unchanged from the prior study with the possible exception of increased size of an 8 millimeter in diameter right basilar nodule posterio rly. Increased mediastinal adenopathy noted in comparison with the previous examination with a retro tracheal 16 millimeter node identified increased from about 4 millimeters on the previous examination . No pleural effusion. No pneumothorax. No pulmonary embolic disease or other major vascular abnor mality. Unresected left renal mass again noted, this measures 5-6 cm in greatest diameter, grossly unchanged from prior study. No evidence of urinary tract obstruction. Mildly prominent nodes noted in renal h ilum and adjacent to renal vein on the left as well as para-aortic, more prominent than on the previo us examination, the largest an irregular node adjacent to the aorta measuring about 25 millimeter. Ad renals appear normal. Right kidney appears normal. No evidence of urinary tract obstruction. No pe lvic adenopathy. No focal bowel pathology. Liver, spleen and pancreas are unremarkable. Gallbladde r contains stones. No biliary dilatation seen. IMPRESSION: Decreased size of right apical intrapulmonary mass from 36 to 26 millimeters. Increased size of mediastinal lymph nodes, retrotracheal node measuring 16 millimeters in diameter. Persistent but grossly unchanged small additional right intrapulmonary nodules presumably representin g metastatic disease, presumed resection of right middle lobe nodule. Increased retroperitoneal adenopathy, left pararenal and para-aortic. No gross interval change in appearance of presumed primary left renal mass.
== END 2019-02-13 02:18 ==
PROVIDERS: Internal Medicine; PCP Family Medicine; Visit Provider Registered Nurse Oncology
DX: C64.2 Malignant neoplasm of left kidney, except renal pelvis (principal); C78.01 Secondary malignant neoplasm of right lung; R59.0 Localized enlarged lymph nodes; Z79.899 Other long term (current) drug therapy
CPT/HCPCS: 74177; 80053; 71260; 84439; 84443; 85025; J3490; Q9967

== ENCOUNTER 2019-03-12 09:18 | Outpatient (CLI) | payer MEDICARE, BC, SELFPAY ==
[2019-03-12 09:52] LABS: Abs Immature Grans 0.01 k/cumm (0.0-0.09); Absolute Basophil Count 0.07 k/cumm (0.0-0.2); Absolute Eosinophil Count 0.07 k/cumm (0.0-0.7); Absolute Monocyte Count 0.47 k/cumm (0.11-0.7); Absolute Neutrophil Count 5.93 k/cumm (1.2-6.7); Basophils % 0.9; Eosinophils % 0.9; HCT 46.7 % (40.0-50.0); HGB 15.6 g/dL (13.5-17.5); Immature Grans % 0.1; Lymphocytes % 13.2; Mean Corp. HGB Concentration 33.4 g/dL (32.0-36.0); Mean Corpuscular Hemoglobin 29.1 pg (27.0-33.0); Mean Corpuscular Volume 87.1 fL (80-95); Mean Platelet Volume 10.9 fL (8.0-11.0); Monocytes % 6.2; Neutrophils % 78.7; Platelet Count 242 x1000/uL (130-400); RBC 5.36 m/cumm (4.50-6.00); RBC Distribution Width 13.7 % (11.8-14.1); White Blood Cell Count 7.55 k/cumm (4.4-10.8)
[2019-03-12 10:15] LABS: ALT 32 U/L (16-63); AST 23 U/L (15-37); Albumin 3.5 g/dL (3.4-5.0); Alkaline Phosphatase 108 U/L (46-116); Anion Gap 6.6 mmol/L (3-11); BUN 18 mg/dL (7-18); Bilirubin, Total 0.5 mg/dL (0.2-1.0); CO2 30.4 mmol/L (21.0-32.0); CREATININE 1.03 mg/dL (0.70-1.30); Chloride 101 mmol/L (98-107); FREE T4 1.15 ng/dL (0.76-1.46); Glucose 252 mg/dL (74-106); Potassium 4.3 mmol/L (3.5-5.1); Sodium 138 mmol/L (136-145); TSH 4.92 uIU/mL (0.36-3.74); Total Protein 7.3 g/dL (6.4-8.2)
[2019-03-12 10:16] LABS: Bilirubin Negative (Negative); Blood Negative (Negative); Clarity Clear (Clear); Glucose 500 mg/dL (Negative); Ketones Negative (Negative); Leukocyte Esterase Negative (Negative); Nitrite Negative (Negative)
[2019-03-12 10:21] LABS: RBC 0-2 HPF (0-2); WBC 0-2 HPF (0-5)
[2019-03-12 10:22] LABS: Bacteria Rare HPF (Negative); C & S Indicated? No; Casts Negative LPF (Negative); Crystals Negative HPF (Negative); Epithelial Cells Rare HPF (Negative); Mucus Trace (Negative)
== END 2019-03-12 09:38 ==
PROVIDERS: PCP Family Medicine; Visit Provider Internal Medicine
DX: C64.2 Malignant neoplasm of left kidney, except renal pelvis (principal); Z79.899 Other long term (current) drug therapy; C78.01 Secondary malignant neoplasm of right lung
CPT/HCPCS: 36415; 80053; 81003; 81015; 84439; 84443; 85025

== ENCOUNTER 2019-03-29 02:36 | Outpatient (CLI) | payer MEDICARE, BC, SELFPAY ==
[2019-03-29] MEDS: Normal Saline Flush 10 ML SYR IVP (09:53)
[2019-03-29] MEDS: Gadoterate meglumine 20 ML VIAL 17 ML IVP (09:53)
--- NOTE | 2019-03-29 10:05 | DI.MRI_ITS ---
EXAM: MR BRAIN WO/W CLINICAL HISTORY: METASTATIC RENAL CELL CA LT, C64.2, TRANSIENT CONFUSION, R41.0. TECHNIQUE: Multiplanar multisequence MRI was performed. COMPARISON: No exams were available for comparison FINDINGS: MR examination of brain was performed according to the usual protocol. Additional post contrast T1 w eighted MP rage imaging obtained. No mass lesion or enhancing lesion seen. The orbital and temporal bone structures appear intact. There is normal flow void in [id number] s vasculature. There are multiple areas of abnormal signal seen on FLAIR imaging involving the timothy and periventricu lar white matter consistent with microvascular ischemic changes. Small focus of old infarction is no stephanie in the mir radiata in the right frontal region. Diffusion-weighted imaging shows no evidence of acute or subacute infarction. Susceptibility weighted imaging shows no evidence of intracranial h emorrhage. IMPRESSION: Microvascular ischemic changes. No evidence of intracranial metastatic disease.
== END 2019-03-29 02:56 ==
PROVIDERS: PCP Family Medicine; Visit Provider Internal Medicine
DX: C34.2 Malignant neoplasm of middle lobe, bronchus or lung (principal); R41.0 Disorientation, unspecified; I67.82 Cerebral ischemia
CPT/HCPCS: 70553

== ENCOUNTER 2019-04-02 09:19 | Outpatient (CLI) | payer MEDICARE, BC, SELFPAY ==
[2019-04-02 09:41] LABS: Abs Immature Grans 0.02 k/cumm (0.0-0.09); Absolute Basophil Count 0.06 k/cumm (0.0-0.2); Absolute Eosinophil Count 0.06 k/cumm (0.0-0.7); Absolute Lymphocyte Count 0.96 k/cumm (1.2-3.4); Absolute Monocyte Count 0.62 k/cumm (0.11-0.7); Absolute Neutrophil Count 4.98 k/cumm (1.2-6.7); Basophils % 0.9; Eosinophils % 0.9; HCT 45.6 % (40.0-50.0); HGB 15.2 g/dL (13.5-17.5); Immature Grans % 0.3; Lymphocytes % 14.3; Mean Corp. HGB Concentration 33.3 g/dL (32.0-36.0); Mean Corpuscular Hemoglobin 29.1 pg (27.0-33.0); Mean Corpuscular Volume 87.2 fL (80-95); Mean Platelet Volume 11.2 fL (8.0-11.0); Monocytes % 9.3; Neutrophils % 74.3; Platelet Count 260 x1000/uL (130-400); RBC 5.23 m/cumm (4.50-6.00); RBC Distribution Width 13.9 % (11.8-14.1)
[2019-04-02 09:57] LABS: ALT 27 U/L (16-63); AST 21 U/L (15-37); Albumin 3.4 g/dL (3.4-5.0); Alkaline Phosphatase 111 U/L (46-116); Anion Gap 4.6 mmol/L (3-11); BUN 25 mg/dL (7-18); Bilirubin, Total 0.5 mg/dL (0.2-1.0); CO2 30.4 mmol/L (21.0-32.0); CREATININE 1.15 mg/dL (0.70-1.30); Calcium 9.3 mg/dL (8.5-10.1); Chloride 97 mmol/L (98-107); FREE T4 1.08 ng/dL (0.76-1.46); Glucose 286 mg/dL (74-106); Potassium 4.4 mmol/L (3.5-5.1); Sodium 132 mmol/L (136-145); TSH 5.34 uIU/mL (0.36-3.74); Total Protein 7.4 g/dL (6.4-8.2)
== END 2019-04-02 09:39 ==
PROVIDERS: PCP Family Medicine; Visit Provider Internal Medicine
DX: C64.2 Malignant neoplasm of left kidney, except renal pelvis (principal); Z79.899 Other long term (current) drug therapy
CPT/HCPCS: 36415; 80053; 84439; 84443; 85025

== ENCOUNTER 2019-04-23 09:23 | Outpatient (CLI) | payer MEDICARE, BC, SELFPAY ==
[2019-04-23 09:55] LABS: Abs Immature Grans 0.02 k/cumm (0.0-0.09); Absolute Basophil Count 0.04 k/cumm (0.0-0.2); Absolute Eosinophil Count 0.07 k/cumm (0.0-0.7); Absolute Lymphocyte Count 0.82 k/cumm (1.2-3.4); Absolute Monocyte Count 0.41 k/cumm (0.11-0.7); Absolute Neutrophil Count 4.34 k/cumm (1.2-6.7); Basophils % 0.7; Eosinophils % 1.2; HCT 43.8 % (40.0-50.0); HGB 14.4 g/dL (13.5-17.5); Immature Grans % 0.4 %; Lymphocytes % 14.4; Mean Corp. HGB Concentration 32.9 g/dL (32.0-36.0); Mean Corpuscular Hemoglobin 28.7 pg (27.0-33.0); Mean Corpuscular Volume 87.3 fL (80-95); Mean Platelet Volume 10.9 fL (8.0-11.0); Monocytes % 7.2; Neutrophils % 76.1; Platelet Count 267 x1000/uL (130-400); RBC 5.02 m/cumm (4.50-6.00)
[2019-04-23 10:07] LABS: Hemoglobin A1C 8.3 % (3.8-5.6)
[2019-04-23 10:18] LABS: ALT 23 U/L (16-63); AST 22 U/L (15-37); Albumin 2.9 g/dL (3.4-5.0); Alkaline Phosphatase 113 U/L (46-116); Anion Gap 6.2 mmol/L (3-11); BUN 20 mg/dL (7-18); Bilirubin, Total 0.5 mg/dL (0.2-1.0); CO2 29.8 mmol/L (21.0-32.0); CREATININE 1.02 mg/dL (0.70-1.30); Calcium 8.5 mg/dL (8.5-10.1); Chloride 105 mmol/L (98-107); FREE T4 1.15 ng/dL (0.76-1.46); Glucose 319 mg/dL (74-106); Potassium 4.7 mmol/L (3.5-5.1); Sodium 141 mmol/L (136-145); TSH 3.48 uIU/mL (0.36-3.74); Total Protein 6.4 g/dL (6.4-8.2)
== END 2019-04-23 09:43 ==
PROVIDERS: PCP Family Medicine; Visit Provider Internal Medicine
DX: C64.2 Malignant neoplasm of left kidney, except renal pelvis (principal); R73.01 Impaired fasting glucose; Z79.899 Other long term (current) drug therapy
CPT/HCPCS: 36415; 80053; 83036; 84439; 84443; 85025

== ENCOUNTER 2019-05-07 00:43 | Outpatient (CLI) | payer MEDICARE, BC, SELFPAY ==
--- NOTE | 2019-05-07 13:50 | DI.US_ITS ---
APPROVED REPORT EXAM: Comprehensive 2D, Doppler, and color-flow Echocardiogram Patient Location: Out-Patient [employer] Processor: Laura Ch RDCS (AE) Rhythm: Bradycardia Indications: SOB. shortness of breath R06.02 Conclusion Left Ventricle : The left ventricle is normal size. The left ventricular systolic function is normal. The left ventricular ejection fraction is within the normal range. There is top normal left ventricu lar wall thickness. There is normal LV segmental wall motion. The left ventricular diastolic function is normal but there is evidence of elevated filling pressures. LVEF is estimated to be 60-65%. Right Ventricle : The right ventricle is normal size. The right ventricular systolic function is norm al. Atria : The left atrium size is normal. The right atrium size is normal. Aortic Valve : Aortic valve is trileaflet. The Aortic valve is sclerotic with focal thickening of the NCCC. Trace aortic regurgitation. There is no hemodynamically significant aortic stenosis. Mitral Valve : There is mild mitral annular calcification. Mitral valve leaflets are mildly thickened , but open well. There is no mitral valve regurgitation noted. No evidence of mitral valve stenosis. Compared to echocardiogram dated 07/18/2018: There is no significant change. Wall motion Left Ventricle The left ventricle is normal size. The left ventricular systolic function is normal. The left ventric ular ejection fraction is within the normal range. There is top normal left ventricular wall thicknes s. There is normal LV segmental wall motion. The left ventricular diastolic function is normal but th ere is evidence of elevated filling pressures. LVEF is estimated to be 60-65%. Right Ventricle The right ventricle is normal size. The right ventricular systolic function is normal. Atria The left atrium size is normal. The right atrium size is normal. Aortic Valve Aortic valve is trileaflet. The Aortic valve is sclerotic with focal thickening of the NCCC. There is no hemodynamically significant aortic stenosis. Trace aortic regurgitation. Mitral Valve There is mild mitral annular calcification. Mitral valve leaflets are mildly thickened, but open well . No evidence of mitral valve stenosis. There is no mitral valve regurgitation noted. Tricuspid Valve The tricuspid valve is normal in structure. Trace to mild tricuspid regurgitation. Pulmonic Valve Mild pulmonic regurgitation. Great Vessels The aortic root is normal in size. IVC is normal in size and collapses >50% with inspiration. The SP is 26-29 mmHg. Pericardium There is no pericardial effusion. 2D Dimensions IVSd 1.10 cm LV EDV A2C 93.2 mL PWd 1.15 cm LV EDV A4C 122.5 mL LVDd 5.15 cm LA Volume Index Biplane 25.4 mL/m2 LVDs 3.25 cm LA Area A4C 19.57 cm2 Aortic Root 3.30 cm LA Area A2C 16.99 cm2 RA Area A4C 16.57 cm2 EF AP4 51.3 % LVOT 2.15 cm (M/F) 1.5-2.5 EF AP2 68.7 % Ascending Aorta 3.22 cm EF BP 60.5 % LVEF (Teich) 66.8 % IVC 1.23 cm LVEF (Vogel's) 60.47 % LV Volume 80.39 mL LV Volume Index 60.18 mL/m2 FS 37.20 % LV Diastology MV E' medial 0.117 (>0.07 m/s) E/A Ratio 0.75 LV E/e MED 4.65 (<14) PV S/D Ratio 1.82 MV E' lateral 0.140 (>0.1 m/s) A-A Duration 140.89 msec LV E/e LAT 3.90 (<14) TR Peak Velocity 2.55 m/s Pulm Vein s 0.81 m/s Pulm Vein d 0.44 m/s Pulm Vein a 0.65 m/s LA vol/ BSA A2C s A-L 22.0 mL/m2 LA vol/ BSA A4C s A-L 25.0 mL/m2 Aortic Valve LVOT Area 3.67 cm2 AoV Area Vmax 1.92 cm2 LVOT Vmax 1.02 m/s AoV Area/ BSA (Vmax) 0.94 cm2/m2 LVOT Mean Gabriel. 0.69 m/s DIVYA Mean Gabriel. 1.82 cm2 LVOT Peak Gr. 4.2 mmHg DIVYA Mean Gabriel. Index 0.89 cm2/m2 LVOT Mean Gr. 2.3 mmHg LVOT VTI 0.221 m AoV Vmax 1.96 (0.5-1.3 m/s) AoV Mean Gabriel. 1.39 m/s AoV Peak Grad 15.3 mmHg LVOT SV 80.97 mL AoV Mean Grad 8.4 (<5 mmHg) AoV VTI 0.404 (0.18-0.25 m) AoV Area VTI 2.00 (2.5-4.5 cm2) AoV Area/ BSA (VTI) 0.98 cm/m2 Mitral Valve MV E Max Gabriel. 0.55 (0.4-1.3 m/s) MVA VTI 4.00 (4.0-6.0 cm2) MV A Velocity 0.70 (0.4-1.3 m/s) RVOT Peak Gr. 2.89 mmHg E/A Ratio 0.77 RVOT Mean Gr. 1.55 mmHg MV Decel. Time 314 (160-240 msec) MV PHT 91 msec MVA PHT 2.40 cm2 PV Peak Velocity 1.10 (0.5-1.5 m/s) RVOT Peak Gabriel. 0.85 m/s RVOT VTI 0.167 m Tricuspid Valve TR P. Gradient 26.1 mmHg TV Regurg Vmax 2.55 m/s RVSP 29.1 mmHg
== END 2019-05-07 01:03 ==
PROVIDERS: PCP Family Medicine; Visit Provider Family Medicine
DX: R06.02 Shortness of breath (principal); I35.8 Other nonrheumatic aortic valve disorders; I35.1 Nonrheumatic aortic (valve) insufficiency
CPT/HCPCS: 93306

== ENCOUNTER 2019-05-13 01:35 | Outpatient (CLI) | payer MEDICARE, BC, SELFPAY ==
[2019-05-13] MEDS: Omnipaque 350 MG/ML 50 ML BTL PO (07:28)
[2019-05-13] MEDS: Breeza Beverage 473 ML BTL PO ×2 (07:28→07:29)
[2019-05-13 07:30] LABS: Abs Immature Grans 0.03 k/cumm (0.0-0.09); Absolute Basophil Count 0.04 k/cumm (0.0-0.2); Absolute Eosinophil Count 0.06 k/cumm (0.0-0.7); Absolute Lymphocyte Count 0.86 k/cumm (1.2-3.4); Absolute Monocyte Count 0.73 k/cumm (0.11-0.7); Absolute Neutrophil Count 5.92 k/cumm (1.2-6.7); Basophils % 0.5; Eosinophils % 0.8; HCT 44.3 % (40.0-50.0); HGB 14.5 g/dL (13.5-17.5); Immature Grans % 0.4 %; Lymphocytes % 11.3; Mean Corp. HGB Concentration 32.7 g/dL (32.0-36.0); Mean Corpuscular Hemoglobin 28.3 pg (27.0-33.0); Mean Corpuscular Volume 86.5 fL (80-95); Mean Platelet Volume 10.7 fL (8.0-11.0); Monocytes % 9.6; Neutrophils % 77.4; Platelet Count 317 x1000/uL (130-400); RBC 5.12 m/cumm (4.50-6.00); RBC Distribution Width 14.1 % (11.8-14.1); White Blood Cell Count 7.64 k/cumm (4.4-10.8)
[2019-05-13 07:51] LABS: ALT 20 U/L (16-63); AST 23 U/L (15-37); Albumin 3.3 g/dL (3.4-5.0); Alkaline Phosphatase 116 U/L (46-116); BUN 23 mg/dL (7-18); Bilirubin, Total 0.5 mg/dL (0.2-1.0); CREATININE 1.04 mg/dL (0.70-1.30); Chloride 102 mmol/L (98-107); FREE T4 1.32 ng/dL (0.76-1.46); Glucose 200 mg/dL (74-106); Potassium 4.5 mmol/L (3.5-5.1); Sodium 139 mmol/L (136-145); TSH 5.72 uIU/mL (0.36-3.74); Total Protein 7.1 g/dL (6.4-8.2)
[2019-05-13] MEDS: Omnipaque 350 MG/ML 100 ML BTL IJ (08:57)
[2019-05-13] MEDS: Normal Saline Flush 10 ML SYR IVP (08:58)
--- NOTE | 2019-05-13 08:59 | DI.CT_ITS ---
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 TECHNIQUE: Imaging Protocol: Axial computed tomography images with coronal and sagittal reformatted images were created and reviewed CONTRAST MATERIAL: Intravenous: Omnipaque 350 Contrast volume:100 mL Oral: Yes COMPARISON: CT CHEST/ABD/PEL W from 02/13/2019 FINDINGS: CHEST: Thyroid: No suspicious mass. Tracheobronchial tree: Patent where visualized. Mediastinum and Farhana: There has been increase in size of several mediastinal lymph nodes. There has been interval increase in size of a lymph node just above the diaphragm to the right of the aorta. N ow measures 1.5 x 2 cm. This compares with 1.3 x 1.5 cm. Pulmonary parenchyma: The pulmonary nodules appear stable. Since the prior examination, there has be en progressive consolidation in the right upper lobe. Increased volume loss of the right upper lobe is also noted. The right apical mass is difficult to measure on the current examination but appears similar in size. Mild centrilobular emphysematous change. Pleura: No effusion or pneumothorax. Lymph nodes: See above. Aorta: Atherosclerosis. No dilatation. Heart: No cardiomegaly or pericardial effusion. Mild coronary artery calcification. Bones: Degenerative changes. No aggressive osseous lesions. ABDOMEN: Liver: Normal density. No measurable mass. Gallbladder and biliary tract: Gallstones. No biliary ductal dilatation. Pancreas: Normal density, no abnormal calcifications or inflammatory process. Spleen: Normal. Kidneys: Right kidney is unremarkable. There is a 2 millimeter nonobstructing stone in the lower ebony e of the left kidney. There is again seen a left renal mass. Currently, it measures 6.0 cm x 6.0 cm . This compares with 5.1 x 5.8 centimeters on the prior examination. The left renal artery and vein appear patent. Adrenal glands: No masses seen. Aorta: Atherosclerosis. No aneurysm. Lymph nodes: There are enlarged left periaortic lymph nodes present. There has been interval increas e in size of a few of the lymph nodes in this region. One such lymph node now measures 2.1 x 1.8 eduar timeters. This compares to 1.1 centimeters on the prior examination. There has been interval increa se in size of the aortic caval lymph node. It now measures 2.6 x 1.6 cm. This compares to 1.5 x 1.5 cm. PELVIS: Bladder: Symmetric distention, no gross wall thickening. Bowel: No obstruction or bowel wall thickening. Normal appendix. Stool present throughout the colon suggesting constipation. Peritoneal cavity: No ascites, collection or mesenteric inflammatory response. Bones: Degenerative changes. No aggressive osseous lesions are present. Reproductive organs: Unremarkable. IMPRESSION: 1. Slight interval increase in size of left renal mass. 2. Interval increase in size of retroperitoneal adenopathy. 3. Worsening consolidation and volume loss in the right upper lobe. 4. Somewhat difficult to measure, the right apical mass appears similar in size. 5. Stable pulmonary nodules. 6. Increased size of mediastinal and hilar adenopathy. DATA REPOSITORY: All CT scans at this facility are submitted to the National Radiology Data Registry (NRDR) Dose Index Registry (DIR) with the [employer] (ACR). RADIATION OPTIMIZATION: All CT scans at this facility use at least one of these dose optimization te chniques: automated exposure control; mA and/or kV adjustment per patient size (includes targeted exa ms where dose is matched to clinical indication); or iterative reconstruction.
== END 2019-05-13 01:55 ==
PROVIDERS: PCP Family Medicine; Visit Provider Internal Medicine
DX: C64.2 Malignant neoplasm of left kidney, except renal pelvis (principal); C78.01 Secondary malignant neoplasm of right lung; R59.0 Localized enlarged lymph nodes; K80.20 Calculus of gallbladder without cholecystitis without obstruction; N20.0 Calculus of kidney; J98.4 Other disorders of lung; Z79.899 Other long term (current) drug therapy
CPT/HCPCS: 36415; 74177; 80053; 71260; 84439; 84443; 85025; J3490; Q9967

== ENCOUNTER 2019-06-18 10:00 | Outpatient (CLI) | payer MEDICARE, BC, SELFPAY ==
[2019-06-18 10:19] LABS: Abs Immature Grans 0.01 k/cumm (0.0-0.09); Absolute Basophil Count 0.03 k/cumm (0.0-0.2); Absolute Eosinophil Count 0.08 k/cumm (0.0-0.7); Absolute Lymphocyte Count 0.86 k/cumm (1.2-3.4); Absolute Monocyte Count 0.29 k/cumm (0.11-0.7); Absolute Neutrophil Count 4.54 k/cumm (1.2-6.7); Basophils % 0.5; Eosinophils % 1.4; HCT 45.4 % (40.0-50.0); HGB 14.8 g/dL (13.5-17.5); Immature Grans % 0.2 %; Lymphocytes % 14.8; Mean Corp. HGB Concentration 32.6 g/dL (32.0-36.0); Mean Corpuscular Hemoglobin 28.5 pg (27.0-33.0); Mean Corpuscular Volume 87.5 fL (80-95); Mean Platelet Volume 10.6 fL (8.0-11.0); Neutrophils % 78.1; Platelet Count 237 x1000/uL (130-400); RBC 5.19 m/cumm (4.50-6.00); RBC Distribution Width 14.8 % (11.8-14.1); White Blood Cell Count 5.81 k/cumm (4.4-10.8)
[2019-06-18 10:41] LABS: ALT 33 U/L (16-63); AST 31 U/L (15-37); Albumin 3.3 g/dL (3.4-5.0); Alkaline Phosphatase 101 U/L (46-116); Anion Gap 6.6 mmol/L (3-11); BUN 24 mg/dL (7-18); Bilirubin, Total 0.6 mg/dL (0.2-1.0); CO2 30.4 mmol/L (21.0-32.0); CREATININE 1.18 mg/dL (0.70-1.30); Calcium 7.8 mg/dL (8.5-10.1); Chloride 103 mmol/L (98-107); FREE T4 1.16 ng/dL (0.76-1.46); Glucose 239 mg/dL (74-106); Potassium 4.6 mmol/L (3.5-5.1); Sodium 140 mmol/L (136-145); TSH 4.31 uIU/mL (0.36-3.74); Total Protein 6.9 g/dL (6.4-8.2)
== END 2019-06-18 10:20 ==
PROVIDERS: PCP Family Medicine; Visit Provider Internal Medicine
DX: C64.2 Malignant neoplasm of left kidney, except renal pelvis (principal); Z79.899 Other long term (current) drug therapy
CPT/HCPCS: 36415; 80053; 84439; 84443; 85025

== ENCOUNTER 2019-07-16 01:32 | Outpatient (CLI) | payer MEDICARE, BC, SELFPAY ==
[2019-07-16 10:24] LABS: Abs Immature Grans 0.01 k/cumm (0.0-0.09); Absolute Basophil Count 0.02 k/cumm (0.0-0.2); Absolute Eosinophil Count 0.19 k/cumm (0.0-0.7); Absolute Lymphocyte Count 0.81 k/cumm (1.2-3.4); Absolute Monocyte Count 0.41 k/cumm (0.11-0.7); Absolute Neutrophil Count 4.26 k/cumm (1.2-6.7); Basophils % 0.4; Eosinophils % 3.3; HCT 41.9 % (40.0-50.0); Immature Grans % 0.2 %; Lymphocytes % 14.2; Mean Corp. HGB Concentration 33.4 g/dL (32.0-36.0); Mean Corpuscular Hemoglobin 29.5 pg (27.0-33.0); Mean Corpuscular Volume 88.4 fL (80-95); Mean Platelet Volume 10.4 fL (8.0-11.0); Monocytes % 7.2; Neutrophils % 74.7; Platelet Count 255 x1000/uL (130-400); RBC 4.74 m/cumm (4.50-6.00); RBC Distribution Width 15.8 % (11.8-14.1)
[2019-07-16 10:46] LABS: ALT 37 U/L (16-63); AST 36 U/L (15-37); Albumin 3.1 g/dL (3.4-5.0); Alkaline Phosphatase 112 U/L (46-116); Anion Gap 4.4 mmol/L (3-11); BUN 18 mg/dL (7-18); Bilirubin, Total 0.5 mg/dL (0.2-1.0); CO2 31.6 mmol/L (21.0-32.0); CREATININE 1.08 mg/dL (0.70-1.30); Calcium 8.9 mg/dL (8.5-10.1); Chloride 105 mmol/L (98-107); FREE T4 1.12 ng/dL (0.76-1.46); Glucose 161 mg/dL (74-106); Sodium 141 mmol/L (136-145); TSH 5.22 uIU/mL (0.36-3.74); Total Protein 6.8 g/dL (6.4-8.2)
== END 2019-07-16 01:52 ==
PROVIDERS: PCP Family Medicine; Visit Provider Internal Medicine
DX: C64.2 Malignant neoplasm of left kidney, except renal pelvis (principal); Z79.899 Other long term (current) drug therapy
CPT/HCPCS: 36415; 80053; 84439; 84443; 85025

== ENCOUNTER 2019-08-13 14:25 | Emergency (ER) | payer MEDICARE, BC, SELFPAY ==
[2019-08-13] VITALS (58 sets, daily range): BP systolic 155–187; BP diastolic 52–82; PULSE 52–81; RESP 12–27; TEMP 36.3; O2SAT 95–100
--- NOTE | 2019-08-13 14:57 | ED.GENADUL_ITS ---
Discharge Plan Disposition Patient Disposition: HOME Condition: Stable Discharge Details Chief Complaint: GenMedical Clinical Impression: Pneumonia Primary Care Provider: Cari Sharp ED Provider: Rashid Horan Home Meds and New Rx's Prescriptions: New levofloxacin [Levaquin] 500 mg tablet 500 mg PO DAILY Qty: 7 RF: 0 Continued (DME) blood-glucose meter [Blood Glucose Monitoring] kit See Dose Instructions .ROUTE .MEDSUPPLY Qty: 1 RF: 0 glipizide 5 mg tablet See Rx Instructions PO DAILY Qty: 180 RF: 5 (DME) Blood Glucose Test Strip See Dose Instructions .ROUTE .MEDSUPPLY Qty: 100 RF: 5 (DME) lancets 25 gauge misc See Dose Instructions .ROUTE .MEDSUPPLY Qty: 100 RF: 4 lisinopril-hydrochlorothiazide 10-12.5 mg tablet 1 tab PO DAILY RF: 0 Discharge Instructions Instructions: Pneumonia (ED) Additional Instructions: Your cat scan showed a developing pneumonia, for which you will be started on antibiotics and for which a COVID test was sent today as well. We will arrange an outpatient followup with Dr Sharp for you. Home to rest today, continue small, frequent sips of fluids to maintain good hydration. Return if you have persistent fever, develop shortness of breath, or any other acute concern. Stand Alone Forms: PENDING COVID-19 TESTING Discharge Data Discharge Date/Time-TO BE ENTERED AT DEPARTURE: 08/13/19 21:45 Medical Decision Making <AMY Weiner - Last Filed: 08/15/19 00:03> Is an 79-year-old patient who has known lung and renal cancer presenting to the emergency room for complaints of 2 weeks of shortness of breath. Patient reports fairly abrupt onset the shortness of breath which has been present for the last 2 weeks associated with a new cough. 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 Patient denies any active chest pain but does describe a indigestion feeling which he reports as reflux which again has been quite constant for the last 2 weeks. Denies any worsening of reflux when exerting. Patient denies productive cough. Patient denies back pain. Denies headache or dizziness. Denies any fevers or night sweats, denies chills. Patient reports he has been eating and drinking without difficulty. He did speak with his oncologist regarding his symptoms and they recommended discontinuing his daily oral chemo medication. Patient reports onset of diarrhea in the last 2 days which is described as watery. Denies use of antibiotics recently. Patient spoke with his PCP who recommended ER evaluation for additional testing. Denies obvious covid exposures. Patient appears quite comfortable in bed. Patient has no obvious increase in respiratory effort at this time. Patient's initial vital signs revealed mild hypertension, heart rate of 57 afebrile with an O2 saturation of 100%. Patient's lung sounds are clear. Patient has an easy respiratory effort. Cardiovascular exam normal. No obvious abdominal pain elicited with palpation. No obvious distention. Patient has no distal edema present in his lower extr emities. Given patient's constellations of symptoms specifically shortness of breath with new cough associated with diarrhea in the last 2 days will check CTA of patient's chest given the description of worsening shortness of breath with exertion to rule out PE. Differential diagnosis includes possible PE, worsening lung mass, pneumonia, viral illness. Will consider ACS and include troponins as patient is reporting an indigestion and some exertional worsening of his shortness of breath however patient has no PA history. Patient agrees with this plan of care. Patient's initial EKG reveals a heart rate of 53, sinus bradycardia noted. No ST segment changes. Unchanged compared to previous on 10/13/2015. This was reviewed with Dr. Rashid Horan. Patient's initial labs reveal no leukocytosis. Glucose of 151. Lactate 2.5. IV fluids 1 L ordered at this time. Initial troponin pending. CT pending. We will sign out patient pending troponin and CT results to Dr. Rashid Horan <Rashid Horan MD - Last Filed: 08/13/19 19:46> Pt seen, examined and discussed with AMY White, please see her note regarding details of the presentation, exam, plan of care. Patient signed out to me at the end of Ms. Ventura shift pending CT scanning of the chest. The images show no 1 right upper lobe consolidation, new left upper lobe consolidation. There are areas of associated groundglass opacification, there are consolidations in the right lower lobe as well that are new. The consolidations and areas of new groundglass opacification are commonly reported imaging findings of COVID-19. This may also represent other causes of pneumonia or connective tissue disease. Patient received 1L NS, was observed and ate a meal, felt improved. He was able to rest and vital signs noted to be normal. Repeat Troponin & lactate obtained, with improvement of lactate to 1.6, repeat Troponin neg. As above, patient with CT evidence of undifferentiated pneumonia. COVID swab obtained and patient started on a course of antibiotics. Will arrange outpatient followup for recheck and he will be placed on oral course of Levaquin given both Cephalosporin and Penicillin allergies. Lab Data Lab results reviewed: Yes I reviewed the patient's lab results. Labs: Laboratory Results - last 24 hr 08/13/19 08/13/19 08/13/19 15:15 15:15 15:15 WBC 5.92 RBC 4.93 Hgb 14.7 Hct 43.8 MCV 88.8 MCH 29.8 MCHC 33.6 RDW 17.3 H Plt Count 225 MPV 10.6 Immature Gran % 0.3 Neutrophils % 73.0 Lymphocytes % 12.2 Monocytes % 7.6 Eosinophils % 6.4 Basophils % 0.5 Absolute Neutrophils 4.32 Absolute Lymphocytes 0.72 L Absolute Monocytes 0.45 Absolute Eosinophils 0.38 Absolute Basophils 0.03 Sodium 139 Potassium 4.1 Chloride 103 Carbon Dioxide 30.7 Anion Gap 5.3 BUN 18 Creatinine 1.10 Estimated GFR/1.73 m2 >= 60.00 Glucose 151 H Lactate 2.5 H* Calcium 8.6 Total Bilirubin 0.5 AST 37 ALT 34 Alkaline Phosphatase 111 Troponin I < 0.05 Total Protein 6.7 Albumin 3.1 L HPI <AMY Weiner - Last Filed: 08/15/19 00:03> General Date/Time Provider Initiated Documentation: 08/13/19 14:26 . HPI Narrative: Is an 79-year-old patient presenting to the emergency room for 2 weeks complaints of cough and shortness of breath. Patient reports cough is new, nonproductive. Patient reports shortness of breath is described as constant. He does report worse with exertion. Denies obvious palpitations. Patient denies obvious chest pain or back pain. He does describe indigestion as heartburn which he has been experiencing fairly constantly for the last 2 weeks. Patient denies any radiating pain to neck or arm. Patient denies abdominal pain, nausea or vomiting. Has been eating and drinking without difficulty. Patient denies obvious fever or chills. Patient has known lung cancer as well as renal cancer for which she is currently taking chemotherapy which she was advised to discontinue due to onset of his symptoms. Patient does report diarrhea for the last 2 days. Denies any blood but reports loose stools. Denies associated abdominal pain. Patient denies obvious weakness. No headaches or dizziness. Denies unsteady gait. Patient denies any lower extremity swelling. Urinating without difficulty. Describes urinating normal amounts. Related Data Home Medications Medication Instructions Recorded Confirmed blood-glucose meter #1 each 08/28/18 04/16/19 blood sugar diagnostic #100 each 01/31/19 04/16/19 lancets 25 gauge #100 each 02/05/19 04/16/19 lisinopril 10 1 tab PO DAILY 02/22/19 08/13/19 mg-hydrochlorothiazide 12.5 mg tablet glipizide 5 mg tablet See Rx Instructions PO DAILY #180 04/16/19 08/13/19 tab levofloxacin [Levaquin] 500 mg PO DAILY #7 tab 08/13/19 Previous Rx's Medication Instructions Recorded blood-glucose meter #1 each 08/28/18 blood sugar diagnostic #100 each 01/31/19 lancets 25 gauge #100 each 02/05/19 glipizide 5 mg tablet See Rx Instructions PO DAILY #180 04/16/19 tab levofloxacin [Levaquin] 500 mg PO DAILY #7 tab 08/13/19 Allergies Allergy/AdvReac Type Severity Reaction Status Date / Time peanut Allergy Severe Anaphylaxsi Unverified 08/13/19 15:42 s cephalexin Allergy Intermediate Hives Unverified 08/13/19 15:42 Penicillins Allergy Unknown Unverified 08/13/19 15:42 General Stated Complaint: GenMedical OSITO: 3 Review of Systems <AMY Weiner - Last Filed: 08/15/19 00:03> All systems reviewed & are unremarkable except as noted in HPI and below Constitutional Constitutional: Denies chills, Denies fatigue, Denies fever(s), Denies headache(s) and Denies malaise ENT Ears, Nose, Mouth, and Throat: Denies vertigo, Denies dizziness, Denies headache(s), Denies neck pain and Denies sore throat Cardiovascular Cardiovascular: Denies chest pain, Denies syncope, Denies leg edema, Denies lightheadedness, Denies radiating jaw, neck or arm pain, Denies palpitations, Reports dyspnea and Reports dyspnea on exertion Respiratory Respiratory: Reports dyspnea and Reports dyspnea on exertion Gastrointestinal Gastrointestinal: Denies abdominal pain, Reports diarrhea, Denies nausea and Denies vomiting Genitourinary Genitourinary: Denies dysuria, Denies urinary frequency and Denies urinary urgency Musculoskeletal Musculoskeletal: Denies neck pain Neurologic Neurologic: Denies confusion, Denies vertigo, Denies dizziness, Denies syncope and Denies headache(s) Psychiatric Psychiatric: Denies confusion Endocrine Endocrine: Denies fatigue and Denies palpitations [facility] <AMY Weiner - Last Filed: 08/15/19 00:03> Medical History Abnormal ECG (Chronic 07/06/10) inferior q's on pre op EKG Aortic stenosis (Chronic) Basal cell carcinoma (Chronic 08/11/15) 08/11/15; LEFT CHEEK, LEFT CHIN,MID UPPER CHEST,PREAURICULAR REGION 11/05/15; RIGHT PREAURICULAR REGION; MIDLINE UPPER CHEST AND LEFT CHEEK. S/P EXCISION; DR. ALFORD Diverticulosis of colon without diverticulitis (Chronic 09/10/12) Hearing loss (Chronic) Hollenhorst plaque, right eye (Chronic) Impaired fasting glucose (Inactive) Polyp of colon (Chronic 09/10/12) DR. STERN; TUBULAR ADENOMA Superficial phlebitis (Chronic 07/06/10) Unilateral inguinal hernia (Chronic) right Varicose veins of lower extremity (Chronic) Vascular disease (Chronic) Surgical History (Updated 08/27/18 @ 13:54 by Cari Sharp MD, [place]) Repair of inguinal hernia (08/09/10) RIGHT Skin Cancer Removal 11/05/15 [facility];LEFT CHEEK/MIDDLE CHEST Family History Father , 93 Heart disease Skin cancer Brain tumor Mother , 80 No problems noted. Sister No problems noted. Brother , 55 No problems noted. Son No problems noted. Son No problems noted. Daughter Ovarian cancer Daughter No problems noted. Daughter Melanoma Social History Smoking/Tobacco Use Status: Former Tobacco Use Quit Date: 04/10/93 Tobacco: How many years used: 40 Alcohol Intake: never Drug use: Never Substance use type: does not use Caregiver/Support person: Yes Household members: spouse Communication Needs: Hard of Hearing Do you need help understanding health information?: Often Pets and animals: Yes Pets and animals: dog(s) and horse(s) Sexually active: No Do you think of yourself as: straight/heterosexual Current gender identity: male What is your relationship status?: How often do you talk on the phone with friends or family?: three or more times per week How often do you get together with friends or relatives?: three or more times per week How often do you attend buddhist or shinto services?: 1-3 times per year Do you belong to any clubs or organized social groups?: no Panel score (0-1 are the most socially isolated patients): 2 What type of physical activity do you participate in: decline to answer Duration: decline to answer Frequency: decline to answer Jaci/Evangelical: No preference Special jaci needs: No Seatbelt use: always Helmet use: No Drive intox or ride w/intox party bus driver: No Do you feel safe at home: Yes Do you feel safe in your relationship?: Yes Exam <AMY Weiner - Last Filed: 08/15/19 00:03> Narrative Exam Narrative: CONST: Healthy appearing patient, in no acute distress. Well hydrated. Alert and oriented. HENMT: Head nomocephalic, normal to inspection. Atraumatic. EYES: General normal appearance. Alignment normal. Eyelids normal. Conjunctiva normal. Sclera normal. PERRL. NECK: Normal visual inspection. FROM. No lymphadenopathy. Trachea midline. No Midline tenderness. CHEST: Normal insepection of the chest. RESP: Normal respiratory effort. Speaking full sentences. No cough. No wheezing. No retractions. Clear to auscaltation. Breath sound equal and present bilaterally. CARDIO: No JVD. Normal PMI. Regular Rate. Regular Rhythm. Normal peripheral pulses. GI: Normal inspection of abdomen. No distension. Soft. Nontender. Bowel sounds present in all 4 quadrants. No rebound. No gaurding. MUSCULOSKELETAL: Normal Gait. FROM of all extremities. Distal neurovascularly intact. Sensation intact distally. No distal edema present SKIN: Normal. Dry. No rashes. NEURO: Alert and awake. Speech clear. PSYCH: Normal affect. Cooperative. Course <AMY Weiner - Last Filed: 08/15/19 00:03> Vital Signs Vital signs: Vital Signs Temperature 36.3 C L 08/13/19 14:34 Pulse 57 L 08/13/19 14:34 Blood Pressure 174/71 H 08/13/19 14:34 Pulse Oximetry 100 08/13/19 14:34 Temperature 36.3 C L 08/13/19 14:34 Temperature Source Temporal Artery Scan 08/13/19 14:34 Pulse 57 L 08/13/19 14:34 Blood Pressure 174/71 H 08/13/19 14:34 Blood Pressure Position Supine 08/13/19 14:34 Pulse Oximetry 100 08/13/19 14:34 Oxygen Delivery Method Tent 08/13/19 14:34 Oxygen Flow Rate 0 08/13/19 14:34 Lab/Test Results Lab/Test Results: 08/13/19 14:51 Blood Blood Culture - Pending 08/13/19 14:51 Blood Blood Culture - Pending Sign Out <AMY Weiner - Last Filed: 08/15/19 00:03> Sign Out Data: Sign Out Comment: Patient signed out pending CT results, troponin and disposition for his presentation of shortness of breath, heartburn and diarrhea. Last updated by Barb White PA at 08/13/19 16:28
[2019-08-13 15:40] LABS: Lactate 2.5 mmol/L (0.6-1.4)
[2019-08-13 15:43] LABS: Abs Immature Grans 0.02 k/cumm (0.0-0.09); Absolute Basophil Count 0.03 k/cumm (0.0-0.2); Absolute Eosinophil Count 0.38 k/cumm (0.0-0.7); Absolute Lymphocyte Count 0.72 k/cumm (1.2-3.4); Absolute Monocyte Count 0.45 k/cumm (0.11-0.7); Absolute Neutrophil Count 4.32 k/cumm (1.2-6.7); Basophils % 0.5; Eosinophils % 6.4; HCT 43.8 % (40.0-50.0); HGB 14.7 g/dL (13.5-17.5); Immature Grans % 0.3 %; Lymphocytes % 12.2; Mean Corp. HGB Concentration 33.6 g/dL (32.0-36.0); Mean Corpuscular Hemoglobin 29.8 pg (27.0-33.0); Mean Corpuscular Volume 88.8 fL (80-95); Mean Platelet Volume 10.6 fL (8.0-11.0); Monocytes % 7.6; Platelet Count 225 x1000/uL (130-400); RBC 4.93 m/cumm (4.50-6.00); RBC Distribution Width 17.3 % (11.8-14.1); White Blood Cell Count 5.92 k/cumm (4.4-10.8)
[2019-08-13 15:51] LABS: ALT 34 U/L (16-63); AST 37 U/L (15-37); Albumin 3.1 g/dL (3.4-5.0); Alkaline Phosphatase 111 U/L (46-116); Anion Gap 5.3 mmol/L (3-11); BUN 18 mg/dL (7-18); Bilirubin, Total 0.5 mg/dL (0.2-1.0); CO2 30.7 mmol/L (21.0-32.0); Calcium 8.6 mg/dL (8.5-10.1); Chloride 103 mmol/L (98-107); Glucose 151 mg/dL (74-106); Potassium 4.1 mmol/L (3.5-5.1); Sodium 139 mmol/L (136-145); Total Protein 6.7 g/dL (6.4-8.2); Troponin I < 0.05 ng/Ml (<0.06)
[2019-08-13] MEDS: Normal Saline - Diluent 50 ML VIAL IV (16:15)
[2019-08-13] MEDS: Omnipaque 350 MG/ML 100 ML BTL IJ (16:15)
--- NOTE | 2019-08-13 16:22 | DI.CT_ITS ---
EXAM: CT CHEST PE CTA CLINICAL HISTORY: SOB, cough, known lung CA, on chemo. TECHNIQUE: Imaging Protocol: Axial CT angiography was performed with multi-slice acquisition and mu lti-planar and/or 3D reconstructions. CONTRAST MATERIAL: Intravenous: Omnipaque 350 Contrast volume:75 ml COMPARISON: CT CHEST/ABD/PEL W from 05/13/2019 FINDINGS: The exam is limited by respiratory motion. Pulmonary Arteries: No evidence of filling defect to suggest pulmonary emboli. Mediastinum and Farhana: There has been interval decrease in size of previously noted mediastinal adenop athy. Small bilateral hilar lymph nodes are unchanged. Pulmonary parenchyma: There are postsurgical changes in the right upper lobe. There has been signific ant interval decrease in size of the previously noted right upper lobe mass, now not discretely visib le. There is right upper lobe atelectasis, new since the previous exam. There is an area of dense c onsolidation in the posterior right lower lobe, not seen on the previous exam. There is also now an area of infiltration in the medial left upper lobe. There are other smaller scattered areas of airsp rosalie density, posteriorly in the left lower lobe as well as posteriorly in the superior right lower lo be. There are underlying emphysematous changes. A left lower lobe nodule is seen measuring 1.6 cm. An 8 millimeter nodule seen in the superior segment of the right lower lobe. Pleura: No effusion or pneumothorax. Heart: The heart is not dilated. Minimal coronary artery calcifications are seen. Aorta: Thoracic aorta non-dilated. Upper abdomen: Cholelithiasis. No gallbladder wall thickening or biliary dilatation.. Bones: Degenerative disc changes in the thoracic spine IMPRESSION: No evidence of pulmonary embolism. Interval decrease in size right upper lobe mass and post treatment changes. Decreased size of medias tinal adenopathy. Question of new pulmonary nodules versus infection related opacities. New infiltrates in the right lower and left upper lobes. The findings are nonspecific but could be c onsistent with COVID- 19 pneumonia, influenza pneumonia or organizing pneumonia. RADIATION DOSE DELIVERED: Total DLP DATA REPOSITORY: All CT scans at this facility are submitted to the National Radiology Data Registry (NRDR) Dose Index Registry (DIR) with the [employer] (ACR). RADIATION OPTIMIZATION: All CT scans at this facility use at least one of these dose optimization te chniques: automated exposure control; mA and/or kV adjustment per patient size (includes targeted exa ms where dose is matched to clinical indication); or iterative reconstruction.
--- NOTE | 2019-08-13 17:05 | DI.VRAD_ITS ---
PROCEDURE INFORMATION: Exam: CT Angiography Chest With Contrast Exam date and time: 08/13/2019 4:14 PM Age: 79 years old Clinical indication: Cough and shortness of breath; Patient HX: SOB, cough, known lung cancer, patient is on chemo. TECHNIQUE: Imaging protocol: Computed tomographic angiography of the chest with intravenous contrast. 3D rendering: MIP and/or 3D reconstructed images were created by the technologist. Radiation optimization: All CT scans at this facility use at least one of these dose optimization techniques: automated exposure control; mA and/or kV adjustment per patient size (includes targeted exams where dose is matched to clinical indication); or iterative reconstruction. Contrast material: OMNIPAQUE 350; Contrast volume: 75 ml; Contrast route: IV; COMPARISON: CT CHEST/ABD/PEL W 05/13/2019 8:42 AM FINDINGS: Pulmonary arteries: There is no evidence of a pulmonary embolus. Aorta: There are arteriosclerotic changes of the aorta. Lungs: There is a consolidation within the right upper lobe which appears to represent a contraction of the nodule an right upper lobe findings on the prior study. This solid consolidation, could be harboring an underlying mass. There is a consolidation within the left upper lobe. This was not present on the earlier study. There are areas of associated ground-glass opacification with some degree of crazy paving. There are consolidations within the right lower lobe with areas of ground-glass opacification and crazy paving. This was not present on the earlier study. There is a nodule within the left lower lobe measuring approximately 1.6 cm. There are surgical changes within the right upper lobe. There is a nodule within the left lower lobe which measures approximately the 1.6 cm. This nodule has increased in size since the prior study. There is a nodule within the superior segment of the right lower lobe measuring 8 mm. These nodules were not present the earlier study. Pleural space: Unremarkable. No pneumothorax. No pleural effusion. Heart: The heart and pericardium appear within normal limits. There are coronary artery calcifications. Lymph nodes: No enlarged lymph nodes. Bones/joints: There are degenerative changes of the thoracic spine. Soft tissues: Unremarkable. Other findings: The study is somewhat limited due to motion artifact. There are gallstones within the gallbladder. IMPRESSION: 1. No evidence of a pulmonary embolus. 2. Consolidations and areas of ground-glass opacification, some of which are so shaded with crazy paving. Commonly reported imaging features of COVID-19 pneumonia are present. Other processes such as influenza pneumonia and organizing pneumonia, as can be seen with drug toxicity and connective tissue disease, can cause a similar imaging pattern. 3. Right upper lobe mass and pulmonary nodules as described above.Fleischner follow up recommendations for incidental nodules are not indicated. Follow up per patient's medical condition. 4. Cholelithiasis. Dr. Horan was informed of this critical finding on 08/13/2019 at 4:55 p.m. Eastern standard time. REFERENCES: Jaspreet Sosa, et al., Radiological Society of [place] Expert Consensus Statement on Reporting Chest CT Findings Related to COVID-19. Endorsed by the Society of Thoracic Radiology, the [employer], and RSNA. Published July 03, 2019. Dictated and Authenticated by: Memo Wagoner MD. Ordering:CHAPIS Day MD
[2019-08-13] MEDS: Normal Saline 1,000 ML 1000 ML IV (17:26)
[2019-08-13 19:26] LABS: Lactate 1.6 mmol/L (0.6-1.4)
[2019-08-13 19:44] LABS: Troponin I < 0.05 ng/Ml (<0.06)
[2019-08-13] MEDS: levoFLOXacin 750 MG/150 ML BAG 100 MG IVPB (20:10)
--- NOTE | 2019-08-14 | NUR.NOTE ---
REFERRAL FAXED TO PCP FOR FOLLOW CARE Nursing Note:
[2019-08-14 16:15] LABS: FREE T4 1.11 ng/dL (0.76-1.46)
--- NOTE | 2019-08-15 09:27 | W.ED.FU ---
I received lab result with positive aerobic bottle gram positive ashley. Only 1 set has been drawn. I reviewed ED note, patient was seen here and diagnosed with pneumonia and started on Levaquin and discharged home. I called and spoke with the patient. He notes he has been taking Levaquin as prescribed and is feeling better. I reviewed results with him and recommended he come back to the [facility] for potential admission and treatment with IV antibiotic until blood culture results more definitive.
[2019-08-15 15:58] LABS: COVID-19 RT-PCR UVMMC Result Negative (Negative)
== END 2019-08-13 21:45 | disposition home or self-care (01) ==
PROVIDERS: Physician Assistant; Emergency Provider Emergency Medicine; PCP Family Medicine
DX: J18.8 Other pneumonia, unspecified organism (principal); I10 Essential (primary) hypertension; C78.01 Secondary malignant neoplasm of right lung; Z79.899 Other long term (current) drug therapy; E11.9 Type 2 diabetes mellitus without complications; Z79.84 Long term (current) use of oral hypoglycemic drugs; Z87.891 Personal history of nicotine dependence
CPT/HCPCS: 36415; 71275; 80053; 87040; 87077; 93005; 96361; 96365; 96366; 99285; U0003; 83605; 84439; 84443; 84484; 85025; 93010; J1956; J3490

== ENCOUNTER 2019-08-15 11:37 | Observation (INO) | payer MEDICARE, BC, SELFPAY ==
[2019-08-15] VITALS (29 sets, daily range): BP systolic 119–152; BP diastolic 54–101; PULSE 55–79; RESP 16–29; TEMP 36.6–36.8; O2SAT 96–99
--- NOTE | 2019-08-15 11:54 | ED.GENADUL_ITS ---
Discharge Plan Disposition Patient Disposition: [facility] INPATIENT Condition: Stable Discharge Details Chief Complaint: GenMedical Clinical Impression: Pneumonia, Blood bacterial culture positive Primary Care Provider: Cari Sharp ED Provider: Zeina Carlton Home Meds and New Rx's Prescriptions: No Action (DME) blood-glucose meter [Blood Glucose Monitoring] kit See Dose Instructions .ROUTE .MEDSUPPLY Qty: 1 RF: 0 glipizide 5 mg tablet See Rx Instructions PO DAILY Qty: 180 RF: 5 (DME) blood sugar diagnostic [Blood Glucose Test] Strip See Dose Instructions .ROUTE .MEDSUPPLY Qty: 100 RF: 5 (DME) lancets 25 gauge misc See Dose Instructions .ROUTE .MEDSUPPLY Qty: 100 RF: 4 lisinopril-hydrochlorothiazide 10-12.5 mg tablet 1 tab PO DAILY RF: 0 levofloxacin [Levaquin] 500 mg tablet 500 mg PO DAILY Qty: 7 RF: 0 Medical Decision Making 79-year-old male presents to the ED for positive blood culture which was taken 2 days ago. He was recently diagnosed with pneumonia and is currently undergoing chemo treatment for lung and renal cancer. He was placed on Levaquin 500 mg p.o. 2 days ago and has had his second tablet. He denies any worsening of his s ymptoms. Denies fever nausea vomiting diarrhea. His blood culture came back positive for gram-positive rods. He was instructed to return to the ED for admission due to high risk patient and IV antibiotics. At this time his COVID- 19 swab is pending. 1200: 2 days ago only 1 blood culture set was ordered so we will order another set repeat lactate and CBC and CMP and EKG. Will discuss antibiotic selection with hospitalist and suggest admission due to patient being high risk. Lactate elevated at 2.7, NS @250ml/hr ordered. 1238: Spoke with hospitalist regarding patient case and details, he agrees to admit patient for observation and repeat blood culture results. EKG obtained normal sinus rhythm no ectopy no ST elevation or depression. Reviewed by Dr. Chanel VILLEGAS ER attending. There was an old for review, no significant change. HPI General Mode of arrival: ambulatory . Date/Time Provider Initiated Documentation: 08/15/19 11:39 . Limitations to Documentation: no limitations . Information obtained by: patient . HPI Narrative: 79-year-old male presents to the ED for positive blood culture which was taken 2 days ago. He was recently diagnosed with pneumonia and is currently undergoing chemo treatment for lung and renal cancer. He was placed on Levaquin 500 mg p.o. 2 days ago and has had his second tablet. He denies any worsening of his symptoms. Denies fever nausea vomiting diarrhea. His blood culture came back positive for gram- positive rods. He was instructed to return to the ED for admission due to high risk patient and IV antibiotics. At this time his COVID-19 swab is pending. Related Data Home Medications Medication Instructions Recorded Confirmed blood-glucose meter #1 each 08/28/18 08/15/19 blood sugar diagnostic #100 each 01/31/19 08/15/19 lancets 25 gauge #100 each 02/05/19 08/15/19 lisinopril 10 1 tab PO DAILY 02/22/19 08/15/19 mg-hydrochlorothiazide 12.5 mg tablet glipizide 5 mg tablet See Rx Instructions PO DAILY #180 04/16/19 08/15/19 tab levofloxacin [Levaquin] 500 mg PO DAILY #7 tab 08/13/19 08/15/19 Previous Rx's Medication Instructions Recorded blood-glucose meter #1 each 08/28/18 blood sugar diagnostic #100 each 01/31/19 lancets 25 gauge #100 each 02/05/19 glipizide 5 mg tablet See Rx Instructions PO DAILY #180 04/16/19 tab levofloxacin [Levaquin] 500 mg PO DAILY #7 tab 08/13/19 Allergies Allergy/AdvReac Type Severity Reaction Status Date / Time peanut Allergy Severe Anaphylaxsi Unverified 08/15/19 11:50 s cephalexin Allergy Intermediate Hives Unverified 08/15/19 11:50 Penicillins Allergy Unknown Unverified 08/15/19 11:50 General Stated Complaint: GenMedical OSITO: 3 Review of Systems Narrative: Constitutional: Negative for weight loss, alert and oriented, well groomed, normal body habitus, appears comfortable. HEENT: Denies trauma, headaches, blurry vision, nasal discharge, sore throat, trouble swallowing. Chest: Denies chest pain, palpitations, irregular rhythm, hypertension. Respiratory: Denies worsening of shortness of breath, cough, hemoptysis. GI: Denies abdominal pain, nausea, vomiting, diarrhea, constipation. : Denies dysuria, hematuria, flank pain, rectal bleeding. Neuro: Denies dizziness, blurry vision, weakness, syncope, headache or facial numbness. Hematologic: Denies easy bruising, intolerance to heat or cold, hair loss. All systems reviewed & are unremarkable except as noted in HPI and below PFSH Medical History Abnormal ECG (Chronic 07/06/10) inferior q's on pre op EKG Aortic stenosis (Chronic) Basal cell carcinoma (Chronic 08/11/15) 08/11/15; LEFT CHEEK, LEFT CHIN,MID UPPER CHEST,PREAURICULAR REGION 11/05/15; RIGHT PREAURICULAR REGION; MIDLINE UPPER CHEST AND LEFT CHEEK. S/P EXCISION; DR. ALFORD Diverticulosis of colon without diverticulitis (Chronic 09/10/12) Hearing loss (Chronic) Hollenhorst plaque, right eye (Chronic) Impaired fasting glucose (Inactive) Polyp of colon (Chronic 09/10/12) DR. STERN; TUBULAR ADENOMA Superficial phlebitis (Chronic 07/06/10) Unilateral inguinal hernia (Chronic) right Varicose veins of lower extremity (Chronic) Vascular disease (Chronic) Surgical History Repair of inguinal hernia (08/09/10) RIGHT Skin Cancer Removal 11/05/15 [facility];LEFT CHEEK/MIDDLE CHEST Family History Father , 93 Heart disease Skin cancer Brain tumor Mother , 80 No problems noted. Sister No problems noted. Brother , 55 No problems noted. Son No problems noted. Son No problems noted. Daughter Ovarian cancer Daughter No problems noted. Daughter Melanoma Social History Smoking/Tobacco Use Status: Former Tobacco Use Quit Date: 04/10/93 Tobacco: How many years used: 40 Alcohol Intake: never Drug use: Never Substance use type: does not use Caregiver/Support person: Yes Household members: spouse Communication Needs: Hard of Hearing Do you need help understanding health information?: Often Pets and animals: Yes Pets and animals: dog(s) and horse(s) Sexually active: No Do you think of yourself as: straight/heterosexual Current gender identity: male What is your relationship status?: How often do you talk on the phone with friends or family?: three or more times per week How often do you get together with friends or relatives?: three or more times per week How often do you attend taoist or scientology services?: 1-3 times per year Do you belong to any clubs or organized social groups?: no Panel score (0-1 are the most socially isolated patients): 2 What type of physical activity do you participate in: decline to answer Duration: decline to answer Frequency: decline to answer Jaci/Adventism: No preference Special jaci needs: No Seatbelt use: always Helmet use: No Drive intox or ride w/intox customer service driver: No Do you feel safe at home: Yes Do you feel safe in your relationship?: Yes Exam Narrative Exam Narrative: Constitutional: Alert and oriented x3. Appears stated age. Normal body habitus. Head: Normocephalic, no trauma. Eyes: Pupils PERRLA, Red reflex noted, EOM's intact. Eyelids symmetrical without lesions, discharge, or swelling. ENT: Bilateral TM's WNL, External ear normal to inspection, no mastoid TTP, swelling, or erythema, Nasal turbinates WNL, no nasal discharge. Normal dentition, Posterior pharynx WNL, no exudate. Chest: RRR, Normal S1, S2, distal pulses intact. Resp: Lungs clear to auscultation bilaterally, no wheezes, rales, or rhonchi. Musculoskeletal: Normal gait, 5/5 strength to all four extremities. Skin: No suspicious rashes or lesions. Capillary refill less than 2 sec. Neurologic: Cranial nerves II-XII intact. Alert and oriented x 3. DTR's intact. Hematologic/Lymphatic: No ecchymosis, no lymphadenopathy. Course Vital Signs Vital signs: Vital Signs Temperature 36.8 C 08/15/19 11:46 Pulse 61 08/15/19 11:46 Respiratory Rate 18 08/15/19 11:46 Blood Pressure 149/64 H 08/15/19 11:46 Pulse Oximetry 98 08/15/19 11:46 Temperature 36.8 C 08/15/19 11:46 Temperature Source Tympanic 08/15/19 11:46 Pulse 61 08/15/19 11:46 Respiratory Rate 18 08/15/19 11:46 Respiratory Effort Non-Labored 08/15/19 11:49 Blood Pressure 149/64 H 08/15/19 11:46 Blood Pressure Position Sitting 08/15/19 11:46 Pulse Oximetry 98 08/15/19 11:46 Oxygen Delivery Method Room Air 08/15/19 11:46 Oxygen Flow Rate 0 08/15/19 11:46 Pain Level 0 08/15/19 11:46 Lab/Test Results Lab/Test Results: 08/15/19 11:51 Blood Blood Culture - Pending 08/15/19 11:51 Blood Blood Culture - Pending
[2019-08-15 12:24] LABS: Lactate 2.7 mmol/L (0.6-1.4)
[2019-08-15] MEDS: levoFLOXacin 750 MG/150 ML BAG 100 MG IVPB (12:25)
[2019-08-15 12:27] LABS: Abs Immature Grans 0.02 k/cumm (0.0-0.09); Absolute Basophil Count 0.03 k/cumm (0.0-0.2); Absolute Eosinophil Count 0.21 k/cumm (0.0-0.7); Absolute Lymphocyte Count 0.75 k/cumm (1.2-3.4); Absolute Monocyte Count 0.46 k/cumm (0.11-0.7); Absolute Neutrophil Count 5.19 k/cumm (1.2-6.7); Basophils % 0.5; Eosinophils % 3.2; HCT 42.1 % (40.0-50.0); HGB 14.2 g/dL (13.5-17.5); Immature Grans % 0.3 %; Lymphocytes % 11.3; Mean Corp. HGB Concentration 33.7 g/dL (32.0-36.0); Mean Platelet Volume 10.6 fL (8.0-11.0); Monocytes % 6.9; Neutrophils % 77.8; Platelet Count 257 x1000/uL (130-400); RBC 4.73 m/cumm (4.50-6.00); RBC Distribution Width 17.4 % (11.8-14.1); White Blood Cell Count 6.66 k/cumm (4.4-10.8)
[2019-08-15 12:37] LABS: ALT 31 U/L (16-63); AST 36 U/L (15-37); Alkaline Phosphatase 105 U/L (46-116); Anion Gap 8.9 mmol/L (3-11); BUN 18 mg/dL (7-18); Bilirubin, Total 0.5 mg/dL (0.2-1.0); CO2 29.1 mmol/L (21.0-32.0); CREATININE 1.29 mg/dL (0.70-1.30); Calcium 8.3 mg/dL (8.5-10.1); Chloride 102 mmol/L (98-107); Estimated GFR 53.59 (mL/min/1.73m2); Glucose 168 mg/dL (74-106); Potassium 3.5 mmol/L (3.5-5.1); Sodium 140 mmol/L (136-145); Total Protein 6.6 g/dL (6.4-8.2)
[2019-08-15] MEDS: Normal Saline 250 ML IV (12:54)
[2019-08-15 13:40] LABS: Procalcitonin < 0.1 ng/mL
--- NOTE | 2019-08-15 14:05 | NUR.NOTE ---
report given to GAVINO Rivera pt to med-surg admit, 221 overflow
[2019-08-15] MEDS: Enoxaparin 40 MG/0.4 ML SYR SC (15:51)
[2019-08-15] MEDS: POTASSIUM CHLORIDE/0.45% NACL 1,000 ML 85 MEQ IV (15:51)
--- NOTE | 2019-08-15 18:01 | HPE_ITS ---
Date of service: 08/15/19 Time of Service: 18:01 Assessment and Plan Assessment and plan (1) Pneumonia: Status: Acute Assessment and plan: clinically stable and does not appear to have much symptoms of pneumonia. No cough or fevers. His CT findings may represent his pulmonary spread of his renal cell CA. If his repeat blood culture is negative then I will dc him home to complete 7 day course of Levaquin and he ought to have repeat CXR within couple weeks. Qualifiers: Pneumonia type: due to unspecified organism Laterality: bilateral Lung location: upper lobe of lung Qualified Code(s): J18.9 - Pneumonia, unspecified organism (2) Blood bacterial culture positive: Status: Acute Assessment and plan: I suspect that his culture from 08/13/2019 is a false positive result. If his repeat culture from today is negative then I will discharge him home tomorrow. (3) Diabetes mellitus: Status: Chronic Assessment and plan: cont. home glipizide and monitor glucose AC/HS and cover w/ Novolog sliding scale Qualifiers: Diabetes mellitus type: type 2 Diabetes mellitus shelter insulin use: without ad terminal makeup operator use Diabetes mellitus complication status: without complication Qualified Code(s): E11.9 - Type 2 diabetes mellitus without complications (4) Renal cell carcinoma: Status: Acute Assessment and plan: his oral chemotherapy is on hold for now. Will keep on hold until he has follow up w/ Dr. Jaffe Qualifiers: Laterality: left Qualified Code(s): C64.2 - Malignant neoplasm of left kidney, except renal pelvis (5) Lung cancer: Status: Chronic Assessment and plan: as above. repeat CXR in couple weeks after completion of his Levaquin Qualifiers: Laterality: unspecified laterality History of Present Illness History of Present Illness Chief Complaint: Positive blood culture Narrative: an elevated lactate [id number] male with a past medical history of renal cell carcinoma with lung metastasis for which she has been on treatment for the last year. Patient presented to the emergency department 2 days prior because of symptoms of diarrhea. Patient states he was started on some oral tommy motherapy agent by his oncologist for which 1 of the side effects is diarrhea. When the diarrhea initially started his oncologist reduce the dose but when that did not resolve the diarrhea he was told by his PCP to present to the emergency department. Patient denies any fever or rigors and denies a cough or sputum production or hemoptysis. He admits over the last couple months he has been getting more short of breath with exertion. Work-up in the emergency department on August included a CTA of the chest. No pulmonary embolus was seen. His previously seen right upper lobe mass had decreased in size since his last CT scan from May 13, 2019. Furthermore there was a decrease in his mediastinal adenopathy. However no infiltrates were seen in the right lower lobe posteriorly as well as in the medial aspect of his left upper lobe. Some new pulmonary nodules were also noted. CBC at that time showed no leukocytosis nevertheless he was diagnosed as having pneumonia and was placed on Levaquin 750 mg p.o. daily. Nasopharyngeal swab for COVID-19 was obtained at that time and has since returned negative. Blood cultures were obtained during that ER visit and the patient was called back today because 1 of his blood cultures was now positive for gram-positive rods. Unfortunately only one blood culture was obtained from August 13, 2019. He was reevaluated the emergency department earlier today with repeat labs and repeat blood cultures and started on IV Levaquin 750 mg. He is now admitted on observation status for continued IV antibiotics for presumed pneumonia. Patient feels well denies any dyspnea cough or sputum production although he admits that he has has exertional dyspnea this been present for last couple months. He denies any chest tightness or pain or p ressure. His nasal swab for influenza is negative. His procalcitonin level is less than 0.1. CMP is unremarkable. CBC is also unremarkable. He does have of 2.7 whereas it had been 1.6 two days ago. Patient denies any further diarrhea denies any abdominal pain. He has no dysuria or hematuria. Present time the plan is to continue the IV Levaquin give him IV fluid hydration overnight and repeat his labs in the morning including a repeat lactate level. If he does not spike any fevers overnight and has no respiratory symptoms and his repeat blood culture comes back negative he will be discharged home to finish a 7-day course of Levaquin. Review of Systems All systems reviewed & are unremarkable except as noted in HPI and below Constitutional Constitutional: Reports system reviewed and no additional complaints, except as documented Cardiovascular Cardiovascular: Reports system reviewed and no additional complaints, except as documented and Reports dyspnea on exertion Respiratory Respiratory: Reports as per HPI, Denies chest congestion, Denies cough, Denies hemoptysis, Denies pain with cough, Reports dyspnea on exertion and Denies wheezing Gastrointestinal Gastrointestinal: Reports as per HPI and Denies abdominal pain Genitourinary Genitourinary: Reports system reviewed and no additional complaints, except as documented Musculoskeletal Musculoskeletal: Reports system reviewed and no additional complaints, except as documented Integumentary/Breasts Skin/Breast: Reports lesions (Over nose) Neurologic Neurologic: Reports system reviewed and no additional complaints, except as documented Allergic/Immunologic Allergic/Immunologic: Denies wheezing [facility] Medical History (Updated 08/15/19 @ 18:57 by Master Blanc) Abnormal ECG (Chronic 07/06/10) inferior q's on pre op EKG Aortic stenosis (Chronic) Basal cell carcinoma (Chronic 08/11/15) 08/11/15; LEFT CHEEK, LEFT CHIN,MID UPPER CHEST,PREAURICULAR REGION 11/05/15; RIGHT PREAURICULAR REGION; MIDLINE UPPER CHEST AND LEFT CHEEK. S/P EXCISION; DR. ALFORD Diverticulosis of colon without diverticulitis (Chronic 09/10/12) Hearing loss (Chronic) Hollenhorst plaque, right eye (Chronic) Impaired fasting glucose (Inactive) Polyp of colon (Chronic 09/10/12) DR. STERN; TUBULAR ADENOMA Superficial phlebitis (Chronic 07/06/10) Unilateral inguinal hernia (Chronic) right Varicose veins of lower extremity (Chronic) Vascular disease (Chronic) Surgical History (Updated 08/15/19 @ 18:34 by Master Blanc) History of bilateral cataract extraction (Acute) History of exploratory thoracotomy (Acute) Repair of inguinal hernia (08/09/10) RIGHT Skin Cancer Removal 11/05/15 [facility];LEFT CHEEK/MIDDLE CHEST Family History (Updated 08/15/19 @ 18:37 by Master Blanc) Father , 93 Heart disease Skin cancer Brain tumor Mother , 80 Dementia Sister No problems noted. Brother , 55 Pancreatic cancer Son No problems noted. Son No problems noted. Daughter Ovarian cancer Daughter No problems noted. Daughter Melanoma Social History Smoking/Tobacco Use Status: Former Tobacco Use Quit Date: 04/10/93 Tobacco: How many years used: 40 Alcohol Intake: never Drug use: Never Substance use type: does not use Caregiver/Support person: Yes Household members: spouse Communication Needs: Hard of Hearing Do you need help understanding health information?: Often Pets and animals: Yes Pets and animals: dog(s) and horse(s) Sexually active: No Do you think of yourself as: straight/heterosexual Current gender identity: male What is your relationship status?: How often do you talk on the phone with friends or family?: three or more times per week How often do you get together with friends or relatives?: three or more times per week How often do you attend amish or synagogue services?: 1-3 times per year Do you belong to any clubs or organized social groups?: no Panel score (0-1 are the most socially isolated patients): 2 What type of physical activity do you participate in: decline to answer Duration: decline to answer Frequency: decline to answer Jaci/Scientologist: No preference Special jaci needs: No Seatbelt use: always Helmet use: No Drive intox or ride w/intox driver utility worker: No Do you feel safe at home: Yes Do you feel safe in your relationship?: Yes Meds Home Medications and Allergies Home Medications Medication Instructions Recorded Confirmed Type blood-glucose meter #1 each 08/28/18 08/15/19 Rx blood sugar diagnostic #100 each 01/31/19 08/15/19 Rx lancets 25 gauge #100 each 02/05/19 08/15/19 Rx lisinopril 10 1 tab PO DAILY 02/22/19 08/15/19 History mg-hydrochlorothiazide 12.5 mg tablet glipizide 5 mg tablet See Rx Instructions PO DAILY #180 04/16/19 08/15/19 Rx tab levofloxacin [Levaquin] 500 mg PO DAILY #7 tab 08/13/19 08/15/19 Rx Allergies Allergy/AdvReac Type Severity Reaction Status Date / Time peanut Allergy Severe Anaphylaxsi Unverified 08/15/19 11:50 s cephalexin Allergy Intermediate Hives Unverified 08/15/19 11:50 Penicillins Allergy Unknown Unverified 08/15/19 11:50 Exam Narrative Exam Narrative: Alert and oriented x3. No acute distress. Neck is supple nontender he has soft bilateral bruits. Normal carotid pulses. No JVD. HEENT is remarkable for bilateral hearing aids. Right external canal is obscured by wax left is clear. Nares is moist no epistaxis he has a deviated septum. Oropharynx is noninjected. He has a torus palatini. No exudate. Lungs are clear to auscultation. Heart is regular rate and rhythm with a soft grade 3 systolic murmur along the left sternal border radiating into the second right upper interspace. No thrill or heave or gallop. Abdomen soft nontender NABS no palpable masses. Extremities without peripheral cyanosis or edema. Neurologic exam is grossly intact no focal motor deficits. No facial asymmetry no dysarthric speech full extraocular motion intact. Visual acuity not tested. Genitalia rectal exam deferred. Results Labs Result diagrams: 08/15/19 12:05 08/15/19 12:05 Labs: Laboratory Results - last 24 hr 08/15/19 08/15/19 08/15/19 12:05 12:05 12:05 WBC 6.66 RBC 4.73 Hgb 14.2 Hct 42.1 MCV 89.0 MCH 30.0 MCHC 33.7 RDW 17.4 H Plt Count 257 MPV 10.6 Immature Gran % 0.3 Neutrophils % 77.8 Lymphocytes % 11.3 Monocytes % 6.9 Eosinophils % 3.2 Basophils % 0.5 Absolute Neutrophils 5.19 Absolute Lymphocytes 0.75 L Absolute Monocytes 0.46 Absolute Eosinophils 0.21 Absolute Basophils 0.03 Sodium 140 Potassium 3.5 Chloride 102 Carbon Dioxide 29.1 Anion Gap 8.9 BUN 18 Creatinine 1.29 Estimated GFR/1.73 m2 53.59 Glucose 168 H Lactate 2.7 H* Calcium 8.3 L Total Bilirubin 0.5 AST 36 ALT 31 Alkaline Phosphatase 105 Total Protein 6.6 Albumin 3.0 L Procalcitonin 08/15/19 12:08 WBC RBC Hgb Hct MCV MCH MCHC RDW Plt Count MPV Immature Gran % Neutrophils % Lymphocytes % Monocytes % Eosinophils % Basophils % Absolute Neutrophils Absolute Lymphocytes Absolute Monocytes Absolute Eosinophils Absolute Basophils Sodium Potassium Chloride Carbon Dioxide Anion Gap BUN Creatinine Estimated GFR/1.73 m2 Glucose Lactate Calcium Total Bilirubin AST ALT Alkaline Phosphatase Total Protein Albumin Procalcitonin < 0.1 Last Vital Signs Temp 36.7 C 08/15/19 14:30 Pulse 62 08/15/19 16:00 Resp 20 08/15/19 14:30 BP 129/59 L 08/15/19 16:00 Pulse Ox 97 08/15/19 16:01 COVID-19 Screening Traveled to [place] from one of the affected countries or regions?: NO Recent travel in the [place] within the last 14 days?: No Recent out of the country travel within the last 14 days?: No Exposure or possible exposure to illness during travel?: No Had IN PERSON contact w/suspected or confirmed C-19 person: No Have you had the following symptoms in the past few days?: No
[2019-08-15 23:29] LABS: Legionella Ag Detection Urine Negative (Negative)
[2019-08-16 06:28] VITALS: BP 161/62; PULSE 50
[2019-08-16 06:50] LABS: Abs Immature Grans 0.01 k/cumm (0.0-0.09); Absolute Basophil Count 0.02 k/cumm (0.0-0.2); Absolute Eosinophil Count 0.36 k/cumm (0.0-0.7); Absolute Lymphocyte Count 0.75 k/cumm (1.2-3.4); Absolute Monocyte Count 0.44 k/cumm (0.11-0.7); Absolute Neutrophil Count 3.51 k/cumm (1.2-6.7); Basophils % 0.4; Eosinophils % 7.1; HCT 37.3 % (40.0-50.0); HGB 12.5 g/dL (13.5-17.5); Immature Grans % 0.2 %; Lymphocytes % 14.7; Mean Corp. HGB Concentration 33.5 g/dL (32.0-36.0); Mean Corpuscular Hemoglobin 30.1 pg (27.0-33.0); Mean Corpuscular Volume 89.9 fL (80-95); Mean Platelet Volume 10.3 fL (8.0-11.0); Monocytes % 8.6; Platelet Count 225 x1000/uL (130-400); RBC 4.15 m/cumm (4.50-6.00); RBC Distribution Width 17.4 % (11.8-14.1); White Blood Cell Count 5.09 k/cumm (4.4-10.8)
[2019-08-16 07:06] LABS: Anion Gap 4.3 mmol/L (3-11); BUN 17 mg/dL (7-18); CO2 29.7 mmol/L (21.0-32.0); CREATININE 1.07 mg/dL (0.70-1.30); Calcium 8.2 mg/dL (8.5-10.1); Chloride 106 mmol/L (98-107); Glucose 113 mg/dL (74-106); Potassium 4.1 mmol/L (3.5-5.1); Sodium 140 mmol/L (136-145)
[2019-08-16] MEDS: hydroCHLOROthiazide 12.5 MG TAB PO (07:57)
[2019-08-16] MEDS: glipiZIDE 5 MG TAB PO (07:58)
[2019-08-16] MEDS: Lisinopril 10 MG TAB PO (07:58)
[2019-08-16 08:05] VITALS: BP 150/76; PULSE 54; RESP 20; TEMP 36.5; O2SAT 96
--- NOTE | 2019-08-16 09:55 | INITIAL_ITS ---
- If Service Date Differs Date of service: 08/16/19 Time of Service: 16:32 Care Management Initial Assess REASON FOR HOSPITALIZATION:: Pneumonia PAST MEDICAL HISTORY/PAST SURGICAL HISTORY:: Abnormal ECG, Aortic stenosis, basal cell carcinoma, diverticulosis of colon without diverticulitis, hearing loss, Hollenhorst plaque right eye, impaired fasting glucose, polyp of colon, superficial phlebitis, unilateral inguinal hernia, varicose veins of lower extremity, vascular disease, bilateral cataract extraction, exploratory thoracotomy, inguinal hernia, skin cancer removal PREVIOUS FUNCTIONAL STATUS/SOCIAL/FAMILY SUPPORTS:: Justice resides in [place], [place] with his , Aria. Their daughter also resides in [place], and is supportive. CURRENT FUNCTIONAL STATUS:: Justice was sitting up in bed, reading. He was pleasant in interaction and forthcoming with information. ADVANCE DIRECTIVES:: COLST form on file. Has patient been provided with information about the portal?: Yes Did the patient sign up for the portal?: No CODE STATUS:: DNR/DNI INSURANCE COVERAGE / FINANCIAL ISSUES:: Medicare. /BS FEP CURRENT HOME/COMMUNITY SERVICES/EQUIPMENT:: No current services or equipment. PRIMARY CARE PHYSICIAN:: Cari Sharp POTENTIAL DISCHARGE NEEDS:: Follow up appointments. PATIENT/FAMILY EDUCATION NEEDS:: Review discharge instructions, discuss Ask Me Three. ANTICIPATED BARRIERS TO DISCHARGE:: None identified at this time. TRANSPORTATION:: Via private vehicle with family. PLAN:: Justice will return home when ready per MD, if blood culture results are negative, anticipate he will discharge home as soon as today. He will transport via private vehicle with family.
[2019-08-16] MEDS: levoFLOXacin 750 MG/150 ML BAG 100 MG IVPB (12:05)
[2019-08-16] MEDS: Normal Saline Flush 10 ML SYR IVP (12:07)
--- NOTE | 2019-08-16 12:39 | W.NUTRFU ---
Date of service: 08/16/19 Time of Service: 12:40 Nutritional Follow up NOTE: 79 year old male admitted with PNA. PMH: DM, lung and renal CA. recently stopped oral chemo meds due to illness. Recent A1C (04/23/19) 8.3% indicating mildly elevated blood sugars but acceptable in view of advanced age. BMI wnl for age. Following Diabetic Diet with adequate intake (>75%). Not at risk for nutritional decline at this time. Time Spent in Nutritional Counseling and Treatment: 0 time spent face to face
--- NOTE | 2019-08-16 13:15 | PDOC.CMDIS ---
LACE Index Scoring Tool - Questions: Length of Stay (in days): 1 Acuity (Admit via E.D.?): Yes Comorbidities: Any Tumor E.D. Visits: 2 - Answers: Total Score: 8 Risk of Readmission: Low Risk Care Management Discharge Reason for Hospitalization: Pneumonia Discharge Plan: Justice will return home when ready per MD, he will follow up with his PCP and plan of care as prescribed. No additional services anticipated at this time. He will transport via private vehicle with family. Patient/Family Education Needs: Review of discharge instructions, discuss Ask Me Three.
--- NOTE | 2019-08-16 13:40 | DSE_ITS ---
Date of service: 08/16/19 Time of Service: 13:41 DS: Diagnosis Discharge Diagnosis (1) Pneumonia: Status: Acute Asessment and Plan: Patient was treated w/ Levaquin 750 mg iv daily while he was hospitalized. He had already taken 2 days of oral Levaquin prior to admission. He is to finish out his current Rx. He remained asymptomatic during his hospital stay. Patient has a follow up visit for next week w/ Dr. Sharp according to the patient. (2) Blood bacterial culture positive: Status: Resolved Asessment and Plan: repeat blood cultures from 08/14 showed no growth at 24 hrs. First cultures from 08/12 grew GPR which lab believed to be Corynebacterium and therefore a contaminant. As the patient remained asymptomatic and repeat culture was negative, it was felt that he could be discharged home to complete his current Levaquin for his pneumonia. (3) Diabetes mellitus: Status: Chronic Asessment and Plan: no change in his home meds. (4) Renal cell carcinoma: Status: Acute Asessment and Plan: patient has a follow up w/ his oncologist next week, Dr. Jaffe at [facility] (5) Lung cancer: Status: Chronic Discharge Plan Disposition Patient Disposition: HOME Condition: Stable Discharge Details Chief Complaint: GenMedical Clinical Impression: Pneumonia, Blood bacterial culture positive Reason For Visit: positive blood culture Admit Date/Time: 08/15/19 12:50 Admit Provider: Master Blanc Attending Provider: Master Blanc Primary Care Provider: Cari Sharp ED Provider: Zeina Carlton Home Meds and New Rx's Prescriptions: Continued (DME) blood-glucose meter [Blood Glucose Monitoring] kit See Dose Instructions .ROUTE .MEDSUPPLY Qty: 1 RF: 0 glipizide 5 mg tablet See Rx Instructions PO DAILY Qty: 180 RF: 5 (DME) blood sugar diagnostic [Blood Glucose Test] Strip See Dose Instructions .ROUTE .MEDSUPPLY Qty: 100 RF: 5 (DME) lancets 25 gauge misc See Dose Instructions .ROUTE .MEDSUPPLY Qty: 100 RF: 4 lisinopril-hydrochlorothiazide 10-12.5 mg tablet 1 tab PO DAILY RF: 0 levofloxacin [Levaquin] 500 mg tablet 500 mg PO DAILY Qty: 7 RF: 0 Discharge Instructions Referrals: Cari Sharp MD, [place] [Primary Care Provider] - Activity:: Activity as Tolerated Equipment/Supplies:: No Equipment Needed Diet:: As Tolerated Discharge Orders Discharge Orders: Discharge Order (Routine); Ordered 08/16/19 Ordered By: Master Blanc DS: Summary Status at Discharge Functional status at discharge: independent ambulation Overall status at discharge: patient is back to baseline Mental Status: mental status grossly normal Speech and Movement: speech and movement normal Mood: congruent mood Affect: normal affect Time Spent with Patient providing and/or coordinating discharge services: Less than 30 minutes Exam Narrative Exam Narrative: Alert and oriented x3. No acute distress. Neck is supple nontender he has soft bilateral bruits. Normal carotid pulses. No JVD. Lungs are clear to auscultation. Heart is regular rate and rhythm with a soft grade 3 systolic murmur along the left sternal border radiating into the second right upper interspace. No thrill or heave or gallop. Psych Mental Status: mental status grossly normal Speech and Movement: speech and movement normal Mood: congruent mood Affect: normal affect DS: Data Vitals/I&O Vitals and I&O: Vital Signs Temperature 36.5 C 08/16/19 08:05 Temperature Source Temporal Artery Scan 08/16/19 08:05 Pulse 54 L 08/16/19 08:05 Pulse Rhythm Regular 08/16/19 08:05 Pulse 65 08/15/19 13:15 Respiratory Rate 20 08/16/19 08:05 Respiratory Effort 08/16/19 08:05 Respiratory Depth Normal 08/16/19 08:05 Respiratory Pattern Normal 08/16/19 08:05 Blood Pressure 150/76 H 08/16/19 08:05 Blood Pressure Mean 83 08/16/19 06:28 Blood Pressure Position Sitting 08/15/19 14:30 Pulse Oximetry 96 08/16/19 08:05 Oxygen Delivery Method Room Air 08/16/19 08:05 Oxygen Flow Rate 0 08/16/19 08:05 Pain Level 0 08/16/19 08:05 Intake & Output 08/15/19 08/16/19 08/16/19 23:59 11:59 23:59 Intake Total 1181.167 / 1181.167 938.833 / 1178.833 240 / 1178.833 Output Total 525 / 525 500 / 500 Balance 656.167 / 656.167 438.833 / 678.833 240 / 678.833 Weight 81.2 kg Intake: IV 941.167 / 941.167 458.833 / 458.833 Oral 240 / 240 480 / 720 240 / 720 Output: Urine 525 / 525 500 / 500 Other: Urine Color Yellow Yellow Urine Appearance Clear Clear Urine Odor Normal Voiding Methods Urinal Urinal Data Completed and Pending Labs on day of discharge: Labs from last 24 hours 08/16/19 08/16/19 08/16/19 06:30 06:30 06:30 WBC 5.09 RBC 4.15 L Hgb 12.5 L Hct 37.3 L MCV 89.9 MCH 30.1 MCHC 33.5 RDW 17.4 H Plt Count 225 MPV 10.3 Immature Gran % 0.2 Neutrophils % 69.0 Lymphocytes % 14.7 Monocytes % 8.6 Eosinophils % 7.1 Basophils % 0.4 Absolute Neutrophils 3.51 Absolute Lymphocytes 0.75 L Absolute Monocytes 0.44 Absolute Eosinophils 0.36 Absolute Basophils 0.02 Sodium 140 Potassium 4.1 Chloride 106 Carbon Dioxide 29.7 Anion Gap 4.3 BUN 17 Creatinine 1.07 Estimated GFR/1.73 m2 >= 60.00 Glucose 113 H Lactate 1.0 Calcium 8.2 L Procalcitonin Urine Legionella Ag Ur Strep pneumoniae Ag 08/15/19 08/15/19 08/15/19 13:40 13:40 12:08 WBC RBC Hgb Hct MCV MCH MCHC RDW Plt Count MPV Immature Gran % Neutrophils % Lymphocytes % Monocytes % Eosinophils % Basophils % Absolute Neutrophils Absolute Lymphocytes Absolute Monocytes Absolute Eosinophils Absolute Basophils Sodium Potassium Chloride Carbon Dioxide Anion Gap BUN Creatinine Estimated GFR/1.73 m2 Glucose Lactate Calcium Procalcitonin < 0.1 Urine Legionella Ag Negative Ur Strep pneumoniae Ag Pending 08/15/19 12:50 Blood Blood Culture - Pending 08/15/19 12:05 Blood Blood Culture - Pending Preliminary micro results at discharge 08/15/19 12:50 Blood Culture - Pending Blood 08/15/19 12:05 Blood Culture - Pending Blood [facility] Medical History (Updated 08/16/19 @ 14:00 by Master Blanc) Abnormal ECG (Chronic 07/06/10) inferior q's on pre op EKG Aortic stenosis (Chronic) Basal cell carcinoma (Chronic 08/11/15) 08/11/15; LEFT CHEEK, LEFT CHIN,MID UPPER CHEST,PREAURICULAR REGION 11/05/15; RIGHT PREAURICULAR REGION; MIDLINE UPPER CHEST AND LEFT CHEEK. S/P EXCISION; DR. ALFORD Diverticulosis of colon without diverticulitis (Chronic 09/10/12) Hearing loss (Chronic) Hollenhorst plaque, right eye (Chronic) Impaired fasting glucose (Inactive) Polyp of colon (Chronic 09/10/12) DR. STERN; TUBULAR ADENOMA Superficial phlebitis (Chronic 07/06/10) Unilateral inguinal hernia (Chronic) right Varicose veins of lower extremity (Chronic) Vascular disease (Chronic) Surgical History (Updated 08/15/19 @ 18:34 by Master Blanc) History of bilateral cataract extraction (Acute) History of exploratory thoracotomy (Acute) Repair of inguinal hernia (08/09/10) RIGHT Skin Cancer Removal 11/05/15 [facility];LEFT CHEEK/MIDDLE CHEST Family History (Updated 08/15/19 @ 18:37 by Master Blanc) Father , 93 Heart disease Skin cancer Brain tumor Mother , 80 Dementia Sister No problems noted. Brother , 55 Pancreatic cancer Son No problems noted. Son No problems noted. Daughter Ovarian cancer Daughter No problems noted. Daughter Melanoma Social History Smoking/Tobacco Use Status: Former Tobacco Use Quit Date: 04/10/93 Tobacco: How many years used: 40 Alcohol Intake: never Drug use: Never Substance use type: does not use Caregiver/Support person: Yes Household members: spouse Communication Needs: Hard of Hearing Do you need help understanding health information?: Often Pets and animals: Yes Pets and animals: dog(s) and horse(s) Sexually active: No Do you think of yourself as: straight/heterosexual Current gender identity: male What is your relationship status?: How often do you talk on the phone with friends or family?: three or more times per week How often do you get together with friends or relatives?: three or more times per week How often do you attend yarsani or amish services?: 1-3 times per year Do you belong to any clubs or organized social groups?: no Panel score (0-1 are the most socially isolated patients): 2 What type of physical activity do you participate in: decline to answer Duration: decline to answer Frequency: decline to answer Jaci/Samaritan: No preference Special jaci needs: No Seatbelt use: always Helmet use: No Drive intox or ride w/intox sulky driver: No Do you feel safe at home: Yes Do you feel safe in your relationship?: Yes
[2019-08-17 12:42] LABS: Streptococcus Pneumoniae Ag, U Negative (Negative)
== END 2019-08-16 14:30 | disposition home or self-care (01) ==
LOC: ER 14:03 → ICU 14:08
PROVIDERS: Admitting Provider Internal Medicine; Emergency Provider Registered Nurse Emergency; PCP Family Medicine; Visit Provider Internal Medicine
DX: J18.9 Pneumonia, unspecified organism (principal); E11.9 Type 2 diabetes mellitus without complications; C64.2 Malignant neoplasm of left kidney, except renal pelvis; Z79.899 Other long term (current) drug therapy; Z03.818 Encounter for observation for suspected exposure to other biological agents ruled out; C78.00 Secondary malignant neoplasm of unspecified lung
CPT/HCPCS: 36415; 80048; 80053; 84145; 87040; 87449; 93005; 96361; 96365; 99219; 99238; 99285; J1650; 83605; 85025; 87450; 93010; 99217; G0378; J1956; J3490

== ENCOUNTER 2019-09-24 01:08 | Outpatient (CLI) | payer MEDICARE, BC, SELFPAY ==
[2019-09-24 10:19] LABS: Abs Immature Grans 0.01 k/cumm (0.0-0.09); Absolute Basophil Count 0.02 k/cumm (0.0-0.2); Absolute Eosinophil Count 0.18 k/cumm (0.0-0.7); Absolute Monocyte Count 0.42 k/cumm (0.11-0.7); Absolute Neutrophil Count 3.54 k/cumm (1.2-6.7); Basophils % 0.4; Eosinophils % 3.6; HCT 40.9 % (40.0-50.0); HGB 13.6 g/dL (13.5-17.5); Immature Grans % 0.2 %; Lymphocytes % 16.1; Mean Corp. HGB Concentration 33.3 g/dL (32.0-36.0); Mean Corpuscular Hemoglobin 30.9 pg (27.0-33.0); Mean Platelet Volume 11.1 fL (8.0-11.0); Monocytes % 8.5; Neutrophils % 71.2; Platelet Count 175 x1000/uL (130-400); RBC Distribution Width 16.8 % (11.8-14.1); White Blood Cell Count 4.97 k/cumm (4.4-10.8)
[2019-09-24 10:40] LABS: ALT 33 U/L (16-63); AST 35 U/L (15-37); Albumin 3.3 g/dL (3.4-5.0); Alkaline Phosphatase 97 U/L (46-116); Anion Gap 7.2 mmol/L (3-11); BUN 21 mg/dL (7-18); Bilirubin, Total 0.8 mg/dL (0.2-1.0); CO2 28.8 mmol/L (21.0-32.0); CREATININE 1.02 mg/dL (0.70-1.30); Chloride 105 mmol/L (98-107); FREE T4 1.15 ng/dL (0.76-1.46); Glucose 144 mg/dL (74-106); Potassium 4.3 mmol/L (3.5-5.1); Sodium 141 mmol/L (136-145); TSH 5.46 uIU/mL (0.36-3.74); Total Protein 6.4 g/dL (6.4-8.2)
== END 2019-09-24 01:28 ==
PROVIDERS: PCP Family Medicine; Visit Provider Internal Medicine
DX: E11.9 Type 2 diabetes mellitus without complications (principal); C34.2 Malignant neoplasm of middle lobe, bronchus or lung; Z79.899 Other long term (current) drug therapy
CPT/HCPCS: 36415; 80053; 83036; 84439; 84443; 85025

== ENCOUNTER 2019-10-01 00:41 | Outpatient (CLI) | payer MEDICARE, BC, SELFPAY ==
--- NOTE | 2019-10-01 09:30 | DI.CT_ITS ---
EXAM: CT CHEST/ABD/PEL W CLINICAL HISTORY: METASTATIC RENAL CELL CA TO LUNG,C78.01,C64.9,PRIMARY TECHNIQUE: CT examination of the chest, abdomen, and pelvis was performed with a bolus infusion of 1 00 cc of Omnipaque 350. COMPARISON: CT CT CHEST/ABD/PEL W from 05/13/[address] CHEST PE CTA from 08/13/2019 FINDINGS: Examination is compared with prior scans of the chest of August 12 and of the abdomen and pelvis of . Patient reportedly has known metastatic renal cell carcinoma. There are numerous mediastinal lymph nodes consistent with metastatic disease, these appear grossly u nchanged from prior scan, a right supraclavicular node is also noted. Multiple regions of apparent pu lmonary consolidation seen on prior study, of uncertain etiology, are again noted and an area of patc hy radiodensity at the left lung base in particular is more prominent than on the prior study. Remain vaibhav of the areas of consolidation appear grossly unchanged including the most prominent area of conso lidation in the right lung apex medially and in the right lung base. There is a new right pleural eff usion. Tracheobronchial tree appears intact. No evidence of pulmonary embolic disease. The areas of apparent pulmonary consolidation may represent infectious and/or metastatic disease. Note is again made of heterogeneously enhancing left upper pole renal mass. Retroperitoneal adenopath y noted at the level of the left renal vein has increased in prominence. Multiple tiny nodes are seen in the region of the celiac trunk and retrogastric and are more prominent than on the prior study. R ight paracaval nodes appear more prominent on today's examination as well. There is subtle fat infilt ration adjacent to the left renal mass, probably grossly unchanged from prior study. No evidence of u rinary tract obstruction. There is a small quantity of free pelvic fluid which was not present on the prior examination. No gross pelvic adenopathy. No evidence of bowel obstruction. Liver, spleen, and pancreas appear unremarkable except for presence of aforementioned perirenal incre ased fat attenuation which extends adjacent to the pancreas. Adrenals appear unremarkable. Right kidney appears normal. Spleen appears normal. Cholelithiasis note d without biliary dilatation. No focal bony lesion identified on scanning of the chest, abdomen, and pelvis. IMPRESSION: 1. No gross interval change in mediastinal adenopathy from prior study. 2. Indeterminate pulmonary radiodensities, some interval worsening in left basilar consolidation, th chula are indeterminate for metastatic disease and could represent infectious process. New right pleura l effusion noted. 3. Interval increase in prominence of retroperitoneal adenopathy. 4. New free pelvic fluid. 5. No gross interval change in primary left upper pole renal tumor.
[2019-10-01] MEDS: Omnipaque 350 MG/ML 50 ML BTL IJ (09:59)
[2019-10-01] MEDS: Omnipaque 350 MG/ML 100 ML BTL IJ (10:00)
[2019-10-01] MEDS: Normal Saline - Diluent 50 ML VIAL IV (10:02)
[2019-10-01 10:06] LABS: Abs Immature Grans 0.01 k/cumm (0.0-0.09); Absolute Basophil Count 0.01 k/cumm (0.0-0.2); Absolute Eosinophil Count 0.11 k/cumm (0.0-0.7); Absolute Lymphocyte Count 0.64 k/cumm (1.2-3.4); Absolute Monocyte Count 0.41 k/cumm (0.11-0.7); Absolute Neutrophil Count 3.49 k/cumm (1.2-6.7); Basophils % 0.2; Eosinophils % 2.4; HCT 36.1 % (40.0-50.0); HGB 11.9 g/dL (13.5-17.5); Immature Grans % 0.2 %; Lymphocytes % 13.7; Mean Corpuscular Hemoglobin 31.6 pg (27.0-33.0); Mean Corpuscular Volume 95.8 fL (80-95); Mean Platelet Volume 10.6 fL (8.0-11.0); Monocytes % 8.8; Neutrophils % 74.7; Platelet Count 190 x1000/uL (130-400); RBC 3.77 m/cumm (4.50-6.00); RBC Distribution Width 16.3 % (11.8-14.1); White Blood Cell Count 4.67 k/cumm (4.4-10.8)
[2019-10-01 10:24] LABS: FREE T4 1.19 ng/dL (0.76-1.46); TSH 4.13 uIU/mL (0.36-3.74)
[2019-10-01 10:26] LABS: ALT 22 U/L (16-63); AST 26 U/L (15-37); Alkaline Phosphatase 82 U/L (46-116); Anion Gap 7.5 mmol/L (3-11); BUN 19 mg/dL (7-18); Bilirubin, Total 0.7 mg/dL (0.2-1.0); CO2 26.5 mmol/L (21.0-32.0); CREATININE 1.01 mg/dL (0.70-1.30); Calcium 8.4 mg/dL (8.5-10.1); Chloride 107 mmol/L (98-107); Glucose 141 mg/dL (74-106); Potassium 3.9 mmol/L (3.5-5.1); Sodium 141 mmol/L (136-145); Total Protein 6.2 g/dL (6.4-8.2)
== END 2019-10-01 01:01 ==
PROVIDERS: PCP Family Medicine; Visit Provider Internal Medicine
DX: C64.2 Malignant neoplasm of left kidney, except renal pelvis (principal); C78.01 Secondary malignant neoplasm of right lung; J98.4 Other disorders of lung; J90 Pleural effusion, not elsewhere classified; Z79.899 Other long term (current) drug therapy
CPT/HCPCS: 74177; 80053; 71260; 84439; 84443; 85025; J3490; Q9967

== ENCOUNTER 2019-10-08 12:39 | Outpatient (CLI) | payer MEDICARE, BC, SELFPAY ==
[2019-10-08 13:11] LABS: Abs Immature Grans 0.04 k/cumm (0.0-0.09); Absolute Basophil Count 0.02 k/cumm (0.0-0.2); Absolute Eosinophil Count 0.07 k/cumm (0.0-0.7); Absolute Lymphocyte Count 0.84 k/cumm (1.2-3.4); Absolute Monocyte Count 0.41 k/cumm (0.11-0.7); Absolute Neutrophil Count 3.52 k/cumm (1.2-6.7); Basophils % 0.4; Eosinophils % 1.4; HCT 38.9 % (40.0-50.0); HGB 12.8 g/dL (13.5-17.5); Immature Grans % 0.8 %; Lymphocytes % 17.1; Mean Corp. HGB Concentration 32.9 g/dL (32.0-36.0); Mean Corpuscular Hemoglobin 31.5 pg (27.0-33.0); Mean Corpuscular Volume 95.8 fL (80-95); Mean Platelet Volume 11.2 fL (8.0-11.0); Monocytes % 8.4; Neutrophils % 71.9; Platelet Count 268 x1000/uL (130-400); RBC 4.06 m/cumm (4.50-6.00); RBC Distribution Width 16.1 % (11.8-14.1)
[2019-10-08 13:22] LABS: Bilirubin Negative (Negative); Blood Negative (Negative); Clarity Clear (Clear); Glucose Negative (Negative); Ketones Negative (Negative); Leukocyte Esterase Negative (Negative); Nitrite Negative (Negative); Urobilinogen 0.2 EU/dL (Up TO 0.2)
[2019-10-08 13:28] LABS: ALT 25 U/L (16-63); AST 28 U/L (15-37); Albumin 3.2 g/dL (3.4-5.0); Alkaline Phosphatase 86 U/L (46-116); Anion Gap 6.7 mmol/L (3-11); BUN 17 mg/dL (7-18); Bilirubin, Total 0.3 mg/dL (0.2-1.0); CO2 28.3 mmol/L (21.0-32.0); CREATININE 1.01 mg/dL (0.70-1.30); Calcium 8.6 mg/dL (8.5-10.1); Chloride 105 mmol/L (98-107); FREE T4 1.16 ng/dL (0.76-1.46); Glucose 111 mg/dL (74-106); Potassium 3.9 mmol/L (3.5-5.1); Sodium 140 mmol/L (136-145); TSH 7.12 uIU/mL (0.36-3.74); Total Protein 6.8 g/dL (6.4-8.2)
== END 2019-10-08 12:59 ==
PROVIDERS: PCP Family Medicine; Visit Provider Internal Medicine
DX: C64.2 Malignant neoplasm of left kidney, except renal pelvis (principal); Z79.899 Other long term (current) drug therapy; C78.01 Secondary malignant neoplasm of right lung
CPT/HCPCS: 36415; 80053; 81003; 84439; 84443; 85025

== ENCOUNTER 2019-11-26 12:07 | Outpatient (RCR) | payer MEDICARE, BC, SELFPAY ==
[2019-11-26 12:31] LABS: Abs Immature Grans 0.11 10^3/uL (0.0-0.06); Absolute Basophil Count 0.04 10^3/uL (0.0-0.2); Absolute Eosinophil Count 0.06 10^3/uL (0.0-0.7); Absolute Lymphocyte Count 1.02 10^3/uL (1.2-3.4); Absolute Monocyte Count 0.54 10^3/uL (0.1-0.8); Basophils % 0.7; HCT 46.5 % (40.0-50.0); HGB 14.9 g/dL (13.5-17.5); Immature Grans % 1.8; Lymphocytes % 17.1; MCH 31.2 pg (27.0-33.0); MCV 97.3 fL (80-95); MPV 10.4 fL (8.0-11.0); Neutrophils % 70.4; Nucleated RBC 0 %; Platelet Count 270 10^3/uL (130-400); RBC 4.78 10^6/uL (4.36-5.78); RDW 14.1 % (11.8-14.1); RDW-SD 50.6 fL; WBC 5.97 10^3/uL (4.4-10.8)
[2019-11-26 13:05] LABS: ALT 30 U/L (16-63); AST 36 U/L (15-37); Albumin 3.5 g/dL (3.4-5.0); Alkaline Phosphatase 104 U/L (46-116); Anion Gap 7.2 mmol/L (3-11); BUN 14 mg/dL (7-18); Bilirubin, Total 0.5 mg/dL (0.2-1.0); CO2 28.8 mmol/L (21.0-32.0); CREATININE 0.98 mg/dL (0.70-1.30); Chloride 105 mmol/L (98-107); FREE T4 1.19 ng/dL (0.76-1.46); Glucose 69 mg/dL (74-106); Potassium 4.1 mmol/L (3.5-5.1); Sodium 141 mmol/L (136-145); TSH 4.91 uIU/mL (0.36-3.74); Total Protein 7.3 g/dL (6.4-8.2)
== END 2019-12-09 23:59 | disposition home or self-care (01) ==
LOC: INF 12:07
PROVIDERS: PCP Family Medicine; Visit Provider Internal Medicine
DX: C78.01 Secondary malignant neoplasm of right lung (principal); C64.9 Malignant neoplasm of unspecified kidney, except renal pelvis; C34.91 Malignant neoplasm of unspecified part of right bronchus or lung; Z79.899 Other long term (current) drug therapy; E07.9 Disorder of thyroid, unspecified
CPT/HCPCS: 36415; 80053; 84439; 84443; 85025

== ENCOUNTER 2020-01-02 02:05 | Outpatient (CLI) | payer MEDICARE, BC, SELFPAY ==
[2020-01-02 09:36] LABS: Abs Immature Grans 0.01 10^3/uL (0.0-0.06); Absolute Basophil Count 0.03 10^3/uL (0.0-0.2); Absolute Eosinophil Count 0.06 10^3/uL (0.0-0.7); Absolute Lymphocyte Count 0.52 10^3/uL (1.2-3.4); Absolute Monocyte Count 0.43 10^3/uL (0.1-0.8); Absolute Neutrophil Count 3.58 10^3/uL (1.2-6.7); Basophils % 0.6; Eosinophils % 1.3; HCT 42.8 % (40.0-50.0); HGB 13.4 g/dL (13.5-17.5); Immature Grans % 0.2; Lymphocytes % 11.2; MCH 30.1 pg (27.0-33.0); MCHC 31.3 % (32.0-36.0); MCV 96.2 fL (80-95); MPV 10.5 fL (8.0-11.0); Monocytes % 9.3; Neutrophils % 77.4; Nucleated RBC 0 %; Platelet Count 218 10^3/uL (130-400); RBC 4.45 10^6/uL (4.36-5.78); RDW 14.5 % (11.8-14.1); RDW-SD 51.6 fL; WBC 4.63 10^3/uL (4.4-10.8)
[2020-01-02 09:53] LABS: ALT 25 U/L (16-63); AST 38 U/L (15-37); Alkaline Phosphatase 107 U/L (46-116); Anion Gap 5.7 mmol/L (3-11); BUN 16 mg/dL (7-18); Bilirubin, Total 0.6 mg/dL (0.2-1.0); CO2 29.3 mmol/L (21.0-32.0); CREATININE 1.06 mg/dL (0.70-1.30); Calcium 8.4 mg/dL (8.5-10.1); Chloride 104 mmol/L (98-107); Glucose 139 mg/dL (74-106); Potassium 4.2 mmol/L (3.5-5.1); Sodium 139 mmol/L (136-145); TSH 4.74 uIU/mL (0.36-3.74); Total Protein 6.3 g/dL (6.4-8.2)
[2020-01-02] MEDS: Omnipaque 350 MG/ML 50 ML BTL IJ (10:21)
[2020-01-02] MEDS: Breeza Beverage 473 ML BTL PO (10:21)
--- NOTE | 2020-01-02 10:50 | DI.CT_ITS ---
EXAM: CT CHEST/ABD/PEL W CLINICAL HISTORY: METASTATIC RENAL CELL CA TO LUNG,C78.01,C64.9,RESTAGING TECHNIQUE: Imaging Protocol: Axial computed tomography images with coronal and sagittal reformatted images were created and reviewed CONTRAST MATERIAL: Intravenous: Omnipaque 350 Contrast volume:100 mL Oral: Yes COMPARISON: CT CT CHEST/ABD/PEL W from 10/01/2019 FINDINGS: CHEST: Tracheobronchial tree: Patent where visualized. Mediastinum and Farhana: Interval increase in size of the right supraclavicular adenopathy. Extensive m ediastinal, hilar and retrocrural adenopathy. Pulmonary parenchyma: Centrilobular emphysematous changes. Interval progression of the ground-glass infiltrates and consolidations bilaterally. Pleura: Interval increase in size of the bilateral pleural effusions. They do remain mild to moderat e in size. Heart: The heart is not dilated. Mild coronary artery calcification. No pericardial effusion. Aorta: Thoracic aorta non-dilated. Atherosclerosis. Lymph nodes: Extensive adenopathy as described above. Bones:Please see below. Soft tissues: Unremarkable. ABDOMEN: Liver: Normal density. There is a new 1.4 cm hypo dense mass in the dome of the right lobe of the sarah er. There is a tiny hypodensity in the peripheral aspect of the left lobe of the liver and tiny hypo densities seen in the right lobe of the liver. Portal, Superior Mesenteric, and Splenic Veins: Unremarkable. Gallbladder and Biliary Tract: Gallstones. No biliary ductal dilatation. Pancreas: Normal density, no abnormal calcifications or inflammatory process. Spleen: Normal. Adrenals: No masses seen. Kidneys: The right renal mass has shown interval increase in size measuring 6.4 x 5.5 cm compared wit h 6.1 x 5.2 cm. There may now be involvement of the left renal vein. There is delayed enhancement o f the left kidney. There has been an increase in the periaortic adenopathy compared to the prior exa mination. The adenopathy now encases and narrows the left renal vein. There has been an increase in size and number of the retrocrural adenopathy. No radiodense stones or obstructive uropathy. No mas ses seen. Abdominal Aorta: Abdominal portion non-dilated. Atherosclerosis. Bowel: No obstruction or bowel wall thickening. No evidence of acute appendicitis. Moderate amount o f retained stool. Peritoneal Cavity: Trace amount of pelvic ascites. Left perinephric stranding which may reflect neop lastic involvement. Lymph Nodes: Please see the above section on the kidneys. Bones: Lucencies are now seen in the L1 vertebral body. There is also now lucency in the right iliac crest. These findings are suspicious for metastatic disease. Soft Tissues: Unremarkable. PELVIS: Bladder: Symmetric distention, no gross wall thickening. Reproductive Organs: Enlarged prostate gland. Lymph Nodes: Please see the above section on the kidneys. Bones: Please see the above section on the bones. IMPRESSION: 1. Interval increase in size of left renal mass. There are findings suspicious for obstruction of th e left kidney with delayed enhancement noted. There may also be involvement of the left renal vein. 2. Interval increase in the retroperitoneal and retrocrural adenopathy. The left renal vein is encas ed and narrowed. 3. Lucency is now seen in the right iliac crest in the L1 vertebral body suspicious for metastatic di sease. 4. Trace amount of pelvic ascites. 5. Hypodensity in the right lobe of the liver. Metastasis cannot be excluded. 6. Interval progressive disease in the chest as described. RADIATION DOSE DELIVERED: 1,680.34mGy.cm Total DLP DATA REPOSITORY: All CT scans at this facility are submitted to the National Radiology Data Registry (NRDR) Dose Index Registry (DIR) with the [employer] (A[employer]). RADIATION OPTIMIZATION: All CT scans at this facility use at least one of these dose optimization te chniques: automated exposure control; mA and/or kV adjustment per patient size (includes targeted exa ms where dose is matched to clinical indication); or iterative reconstruction.
[2020-01-02] MEDS: Omnipaque 350 MG/ML 100 ML BTL IJ (10:51)
[2020-01-02] MEDS: Normal Saline - Diluent 50 ML VIAL IV (10:55)
== END 2020-01-02 02:25 ==
PROVIDERS: PCP Family Medicine; Visit Provider Internal Medicine
DX: C78.01 Secondary malignant neoplasm of right lung (principal); C64.2 Malignant neoplasm of left kidney, except renal pelvis; C34.91 Malignant neoplasm of unspecified part of right bronchus or lung; E07.9 Disorder of thyroid, unspecified; Z79.899 Other long term (current) drug therapy
CPT/HCPCS: 36415; 74177; 80053; 71260; 84439; 84443; 85025; J3490; Q9967

== ENCOUNTER 2020-01-21 01:28 | Outpatient (CLI) | payer MEDICARE, BC, SELFPAY ==
[2020-01-21 09:53] LABS: Abs Immature Grans 0.05 10^3/uL (0.0-0.06); Absolute Basophil Count 0.04 10^3/uL (0.0-0.2); Absolute Eosinophil Count 0.04 10^3/uL (0.0-0.7); Absolute Monocyte Count 0.55 10^3/uL (0.1-0.8); Absolute Neutrophil Count 4.65 10^3/uL (1.2-6.7); Basophils % 0.7; Eosinophils % 0.7; HCT 44.2 % (40.0-50.0); HGB 13.9 g/dL (13.5-17.5); Immature Grans % 0.8; Lymphocytes % 10.1; MCH 29.8 pg (27.0-33.0); MCHC 31.4 % (32.0-36.0); MCV 94.6 fL (80-95); MPV 10.2 fL (8.0-11.0); Monocytes % 9.3; Neutrophils % 78.4; Nucleated RBC 0 %; Platelet Count 236 10^3/uL (130-400); RBC 4.67 10^6/uL (4.36-5.78); WBC 5.93 10^3/uL (4.4-10.8)
[2020-01-21 10:16] LABS: ALT 17 U/L (16-63); AST 33 U/L (15-37); Alkaline Phosphatase 110 U/L (46-116); Anion Gap 5.7 mmol/L (3-11); BUN 21 mg/dL (7-18); Bilirubin, Total 0.6 mg/dL (0.2-1.0); CO2 30.3 mmol/L (21.0-32.0); CREATININE 1.26 mg/dL (0.70-1.30); Calcium 9.2 mg/dL (8.5-10.1); Chloride 101 mmol/L (98-107); Estimated GFR 55.07 (mL/min/1.73m2); FREE T4 1.33 ng/dL (0.76-1.46); Glucose 232 mg/dL (74-106); Potassium 4.1 mmol/L (3.5-5.1); Sodium 137 mmol/L (136-145); TSH 7.33 uIU/mL (0.36-3.74); Total Protein 6.6 g/dL (6.4-8.2)
== END 2020-01-21 01:48 ==
PROVIDERS: PCP Family Medicine; Visit Provider Internal Medicine
DX: C78.01 Secondary malignant neoplasm of right lung (principal); C64.2 Malignant neoplasm of left kidney, except renal pelvis; C34.91 Malignant neoplasm of unspecified part of right bronchus or lung; E07.9 Disorder of thyroid, unspecified; Z79.899 Other long term (current) drug therapy
CPT/HCPCS: 36415; 80053; 84439; 84443; 85025

== ENCOUNTER 2020-03-02 14:02 | Day surgery (SDC) | payer MEDICARE, BC, SELFPAY ==
[2020-03-02 14:10] VITALS: BP 172/82; PULSE 95; RESP 22; TEMP 36.5; O2SAT 96
--- NOTE | 2020-03-02 14:30 | W.SURGCON ---
Date of service: 03/02/20 Time of Service: 14:30 Assessment and Plan Assessment and plan (1) Bone metastases: Status: Acute (2) Malignant pleural effusion: Status: Acute Assessment and plan: I did review the latest CT scan his chest x-ray from today. Normally his effusion is on the right. Is lung cancer is on the right. (This is adenocarcinoma). He also has renal cell ca mood. Rcinoma-this is on the left and increasing in size. I did review Dr. Becerra's notes. They recommended no further treatment and palliative care. She is here today with increasing shortness of breath and is here for a left-sided thoracentesis for symptom control. Informed consent obtained explaining risks and benefits of procedure including not limited to: Bleeding, infection, reaction to the anesthetics, persistent leak, damage to the long, need for further treatment. If patient continues to have problems with pleural effusions we can place a Pleurx catheter for symptom relief. Patient agrees and does wish to have the procedure done today. I do not feel he needs antibiotics. The site is marked in preop. (3) Lung cancer: Status: Chronic Qualifiers: Laterality: unspecified laterality (4) Renal cell carcinoma: Status: Acute Qualifiers: Laterality: left Qualified Code(s): C64.2 - Malignant neoplasm of left kidney, except renal pelvis (5) Diabetes mellitus: Status: Chronic Qualifiers: Diabetes mellitus type: type 2 Diabetes mellitus bed bug exterminator insulin use: without alf use Diabetes mellitus complication status: without complication Qualified Code(s): E11.9 - Type 2 diabetes mellitus without complications (6) Diverticulosis of colon without diverticulitis: Status: Chronic History of Present Illness Narrative: Pt has a hx of a right pleural effusionn. Today the effusion is on the left. He nomrally sleeps on his left side. He had a renal cell carcinoma and mets to the right lung/left sided renal cell. Consults Consult date: 03/02/20 Requesting physician: Cari Sharp Review of Systems All systems reviewed & are unremarkable except as noted in HPI and below PFSH Medical History (Updated 03/02/20 @ 19:53 by Lexi Joya DO) Abnormal ECG (07/06/10) inferior q's on pre op EKG Aortic stenosis Basal cell carcinoma (08/11/15) 08/11/15; LEFT CHEEK, LEFT CHIN,MID UPPER CHEST,PREAURICULAR REGION 11/05/15; RIGHT PREAURICULAR REGION; MIDLINE UPPER CHEST AND LEFT CHEEK. S/P EXCISION; DR. ALFORD Bone metastases Diverticulosis of colon without diverticulitis (09/10/12) Hearing loss Hollenhorst plaque, right eye Impaired fasting glucose Lung mass metastatic with multiple nodules, largest 3.6cm bx: adenocarcinoma Lymphadenopathy of head and neck Malignant pleural effusion Pneumonia Polyp of colon (09/10/12) DR. STERN; TUBULAR ADENOMA Superficial phlebitis (07/06/10) Ulcer Unilateral inguinal hernia right Varicose veins of lower extremity Vascular disease Surgical History (Updated 08/15/19 @ 18:34 by Master Blanc) History of bilateral cataract extraction History of exploratory thoracotomy Repair of inguinal hernia (08/09/10) RIGHT Skin Cancer Removal 11/05/15 [facility];LEFT CHEEK/MIDDLE CHEST Family History (Updated 08/15/19 @ 18:37 by Master Blanc) Father , 93 Heart disease Skin cancer Brain tumor Mother , 80 Dementia Sister No problems noted. Brother , 55 Pancreatic cancer Son No problems noted. Son No problems noted. Daughter Ovarian cancer Daughter No problems noted. Daughter Melanoma Social History Smoking/Tobacco Use Status: Former Tobacco Use Quit Date: 04/10/93 Tobacco: How many years used: 40 Smoking risk assessment performed?: Yes Alcohol Intake: never Drug use: Never Substance use type: does not use Caregiver/Support person: Yes Household members: spouse Communication Needs: Hard of Hearing Do you need help understanding health information?: Often Pets and animals: Yes Pets and animals: dog(s) and horse(s) Sexually active: No Do you think of yourself as: straight/heterosexual Current gender identity: male What is your relationship status?: How often do you talk on the phone with friends or family?: three or more times per week How often do you get together with friends or relatives?: three or more times per week How often do you attend baptism or jainism services?: 1-3 times per year Do you belong to any clubs or organized social groups?: no Panel score (0-1 are the most socially isolated patients): 2 What type of physical activity do you participate in: decline to answer Duration: decline to answer Frequency: decline to answer Jaci/Protestant: No preference Special jaci needs: No Seatbelt use: always Helmet use: No Drive intox or ride w/intox driver license reviewing officer: No Do you feel safe at home: Yes Do you feel safe in your relationship?: Yes Exam Const General: cooperative, healthy appearing, comfortable, no acute distress, well developed and well groomed Nutritional Appearance: average body habitus and well nourished Orientation: alert, awake and oriented x3 HENSC Head: normal to inspection, normocephalic and atraumatic Ears: external ears normal and hearing grossly impaired (weard hearing aides) General nose exam: other (changes noted from prior skin cancer surgery's.) Face and sinus: normal facial exam Mouth: oral mucosae normal, lip normal, tongue normal and moist mucous membranes Teeth and gingiva: fair dentition Eyes General: appearance normal, both eyes and all related structures Conjunctivae: conjunctivae normal Sclera: sclerae normal Pupils: PERRL Neck Neck: normal visual inspection and full ROM Chest Chest: normal inspection of the chest Resp Effort & Inspection: normal respiratory effort, able to speak in complete sentences, no cough, no nasal flaring, not tachypneic and no use of accessory muscles Auscultation: no rales, no rhonchi and no wheezes Other: decreased BS b/l. no r/r/w Cardio Jugular venous pressure: no JVD Rate: regular rate Rhythm: regular rhythm GI Inspection: normal to inspection, no edema and non-distended Palpation: soft, no masses, nontender and No ascites Auscultation: normal bowel sounds Neuro General: patient alert, patient oriented x3, oriented, gait normal, moves all extremities, no focal motor deficits and CN's II-XI intact bilaterally Cognition: normal cognition Speech: speech normal Gait: normal gait Motor: muscle tone normal throughout Extrem General: normal to inspection, full ROM and no clubbing, cyanosis or edema Psych Appearance: grossly normal and well kempt Mental Status: mental status grossly normal Speech and Movement: speech and movement normal Affect: normal affect
--- NOTE | 2020-03-02 15:25 | ROE_ITS ---
Date of service: 03/02/20 Time of Service: 15:26 Operative Note Operative Note DATE OF PROCEDURE: 03/02/20 PRE-OP DIAGNOSIS: met lung CA/SOB- left POST-OP DIAGNOSIS: same PROCEDURE: tnorocentisis SURGEON: Lexi Joya CONTACT FINGER ASSEMBLER: Tanja Peck ANESTHESIA: local PATHOLOGY: none sent Patient was transported to: same day Procedure Description: Pt is here today for thoracentesis for symptoms of shortness of breath. Chest x-ray was reviewed prior to beginning the procedure. Informed consent was obtained explaining risks and benefits of the procedure, including but not limited to bleeding, infection, pneumothorax, recurrence, complications of anesthesia, and other unforetold complications. PROCEDURE: The patient is brought to the procedure room and placed in the seated position. Ultrasound is used to localize the pocket on the left chest. The area is marked and then prepped and draped in the usual sterile fashion using a ChloraPrep scrub solution. 10 cc's of 1% Lidocaine is used to anesthetize the T10 interspace. The small krissy is made with a #11 blade. The needle and catheter is then inserted over the top of the rib, aspirating as it is inserted. The needle is then removed. The catheter is then hooked up to the Vacutainer system and 1700 cc's of straw-colored fluid is evacuated. The catheter is removed; pressure is held. Sterile compression dressing is applied. Portable chest x-ray shows no pneumothorax. Pt is given instructions in wound care, activity, medications, and warning signs: SOB, increasing in pain, chest pain, redness or temperature- if these occur, come to ED.
--- NOTE | 2020-03-02 15:28 | PDOC.DSDIS_ITS ---
Discharge Plan Disposition Patient Disposition: HOME Condition: Good Discharge Details Reason For Visit: left pleural effusion Attending Provider: Lexi Joya Primary Care Provider: Cari Sharp Home Meds and New Rx's Prescriptions: No Action losartan 50 mg tablet 50 mg PO DAILY Qty: 30 RF: 5 prednisone 20 mg tablet 40 mg PO DAILY Qty: 60 RF: 4 morphine concentrate 100 mg/5 mL (20 mg/mL) solution See Rx Instructions sublingual .Q15 min MDD 10ml PRN (Reason: pain) Qty: 30 RF: 0 (DME) blood-glucose meter [Blood Glucose Monitoring] kit See Dose Instructions .ROUTE .MEDSUPPLY Qty: 1 RF: 0 glipizide 5 mg tablet See Rx Instructions PO DAILY Qty: 180 RF: 5 albuterol sulfate 90 mcg/actuation HFA aerosol inhaler 2 puff IH Q8H Qty: 6.7 RF: 4 Spiriva with HandiHaler 18 mcg capsule, w/inhalation device 1 cap inhalation DAILY Qty: 60 RF: 4 ondansetron 4 mg tablet,disintegrating 4 mg PO BID PRN (Reason: nausea and vomiting) Qty: 60 RF: 5 celecoxib [Celebrex] 200 mg capsule 200 mg PO DAILY Qty: 90 RF: 4 polyethylene glycol 3350 17 gram/dose powder 17 g PO DAILY Qty: 238 RF: 6 prednisone 10 mg tablet 10 mg PO DAILY Qty: 90 RF: 5 omeprazole 20 mg capsule,delayed release(DR/EC) 20 mg PO DAILY Qty: 90 RF: 4 (DME) Blood Glucose Test Strip See Dose Instructions .ROUTE .MEDSUPPLY Qty: 100 RF: 5 (DME) lancets 25 gauge misc See Dose Instructions .ROUTE .MEDSUPPLY Qty: 100 RF: 4 Discharge Instructions Additional Instructions: -ice and tylenol for pain -if severe chest pain/sudden shortness of breathe, or coughing up blood- go to ED, especially in the next 72 hrs. -The fluid and the shortness of breathe may slowly re-occur in the next 2-4w eeks. If you find yourself becoming more short of breathe- contact Dr. Sharp or the surgical clinic to re-schedule the procedure. -resume all your previous medications. -avoid ASA/NSAIDs for 24hrs. Activity:: no lifting over 20#'s or strenuous activity x 24 hrs Remove Dressings/Wound Care:: 24 hours Shower/Bathe:: 24 hours Diet:: Carb Counting Discharge Orders Discharge Orders: Discharge Order (Routine); Ordered 03/02/20 Ordered By: Lexi Joya DS: Diagnosis Discharge Diagnosis (1) Shortness of breath: Status: Acute (2) Lung cancer: Status: Chronic (3) Renal cell carcinoma: Status: Acute (4) Diabetes mellitus: Status: Chronic (5) Diverticulosis of colon without diverticulitis: Status: Chronic
[2020-03-02] MEDS: Acetaminophen 500 MG TAB 1000 MG PO (15:50)
--- NOTE | 2020-03-02 15:54 | DI.RAD_ITS ---
EXAM: XR PORTABLE CHEST AP CLINICAL HISTORY: s/p thorocentisis TECHNIQUE: 2D digital imaging was performed. COMPARISON: No exams were available for comparison FINDINGS: A single portable view was performed. The patient is status post left thoracentesis. The left pleur al effusion is significantly decreased in size. There is a small apical pneumothorax. A small right pleural effusion and increased bibasilar densities appear stable. IMPRESSION: Small left apical pneumothorax status post thoracentesis. DATA REPOSITORY: RADIATION DOSE DELIVERED:
== END 2020-03-02 16:13 | disposition home or self-care (01) ==
PROVIDERS: PCP Family Medicine; Visit Provider Surgery
PROC: 0BJQ3ZZ Inspection of Pleura, Percutaneous Approach (ICD-10-PCS; CPT 32554; principal; 2020-03-02 13:45)
DX: R06.02 Shortness of breath (principal); C34.91 Malignant neoplasm of unspecified part of right bronchus or lung; J91.0 Malignant pleural effusion; C64.2 Malignant neoplasm of left kidney, except renal pelvis; C79.51 Secondary malignant neoplasm of bone; E11.9 Type 2 diabetes mellitus without complications; K57.30 Diverticulosis of large intestine without perforation or abscess without bleeding
CPT/HCPCS: 32555; 99214; 99252; 71045; 71046

== ENCOUNTER 2020-03-02 18:17 | Outpatient (CLI) | payer MEDICARE, BC, SELFPAY ==
--- NOTE | 2020-03-02 09:15 | DI.RAD_ITS ---
EXAM: XR CHEST 2V PA LATERAL CLINICAL HISTORY: sob / lung cancer, R06.02, C34.90 TECHNIQUE: 2D digital imaging was performed. COMPARISON: CT CT CHEST/ABD/PEL W from 01/02/2020 FINDINGS: There are small to moderate-sized bilateral pleural effusions, left greater than right. The cardiac silhouette is partially obscured but appears normal in size. There are underlying emphysematous and fibrotic changes. There is left basilar atelectasis. Increased densities are in the right lower lob e adjacent to the effusion. Findings could represent infiltrates versus atelectasis. IMPRESSION: Increased size left pleural effusion when compared with the previous CT. Roughly stable size of righ t pleural effusion. Adjacent basilar densities reflecting atelectasis versus infiltrates. DATA REPOSITORY: RADIATION DOSE DELIVERED:
== END 2020-03-02 18:37 ==
PROVIDERS: PCP Family Medicine; Visit Provider Family Medicine
DX: J90 Pleural effusion, not elsewhere classified (principal); C34.90 Malignant neoplasm of unspecified part of unspecified bronchus or lung
CPT/HCPCS: 71046